=== PATIENT | male | born 1950 | race Caucasian/White ===

== ENCOUNTER 2020-10-15 15:17 | Emergency (ER) | payer SELFPAY ==
[~2020-10-15] VITALS: Ht 175.3 cm; Wt 112.8 kg
[~2020-10-15 15:17] MED LIST: AMLO5TAB4 PO; ASPI-482 PO; ATEN100T PO; OMEG500C PO; TRIA1TAB3 PO
[2020-10-15] MEDS ORDERED: CONTRAST GIVEN. MC PRN (15:30)
[2020-10-15] MEDS ORDERED: IV NORMAL SALINE 1,000ML 1,000 ML IV ONE ×2 (15:30→19:15)
[2020-10-15] MEDS ORDERED: PANTOPRAZOLE IV 40 MG VIAL. IVP ONE (15:30)
[2020-10-15] MEDS ORDERED: IOHEXOL 300 MG/ML 75 ML VIAL. IV ONE (15:30)
[2020-10-15] MEDS ORDERED: ONDANSETRON PF 4 MG/2 ML VIAL. IVP ONE (15:30)
--- NOTE | 2020-10-15 15:50 | PHYS DOC ---
Past History Past Medical History: Hypertension Additional Past Medical Histor: Limited secondary to altered mental status Past Surgical History: No Surgical History Additional Past Surgical Histo: Limited secondary to altered mental status Smoking: Quit Greater Than 1 Year Alcohol Use: None Drug Use: None Social History Narrative: Limited secondary to altered mental status General Adult EDM: Chief Complaint: WEAKNESS/GENERALIZED HPI: HPI: Patient is an unkempt 70 year old male who presents with his for generalized weakness. The patient is a poor historian due to AMS. Most of history was obtained from the patient's . Patient reportedly has not being able to urinate or pass stool since 10/11/20. Reports generalized abdominal pain for the 3 days. Per , the patient started displaying abnormal behavior this morning 10/15/20. Family apparently attempted to have patient presents to the hospital sooner but patient refused. EMS was called after the patient vomited copious amounts of a black substance. Patient reports bilateral upper/lower extremity pain/weakness. Denies known trauma. Denies known exposure to COVID-19. Reports receiving Moderna vaccinations. History of present illness limited secondary to altered mental status. Review of Systems: Review of Systems: Constitutional: Reports generalized weakness Respiratory: Denies cough GI: Reports abdominal pain, nausea, dark vomitus : Reports urinary retention; Denies dysuria Musculoskeletal: Reports bilateral upper/lower extremity pain; Denies back pain Neurologic: Reports generalized weakness Review of systems limited secondary to altered mental status Current Medications: Current Meds: Current Medications Medications (Trade) Dose Ordered Sig/Sri Start Time Stop Time Status Last Admin Dose Admin Info (Do NOT chart on this entry -- for MONITORING) 1 each PRN DAILY PRN 10/15/20 15:30 10/17/20 15:29 Iohexol (Omnipaque 300 Mg/ml) 75 ml 1X ONCE 10/15/20 15:30 10/15/20 15:31 DC Ondansetron HCl (Zofran) 4 mg 1X ONCE 10/15/20 15:30 10/15/20 15:31 DC Pantoprazole Sodium (Protonix Vial) 80 mg 1X ONCE 10/15/20 15:30 10/15/20 15:31 DC Sodium Chloride 1,000 ml @ 1,000 mls/hr 1X ONCE 10/15/20 15:30 10/15/20 16:29 Allergies: Allergies: Allergies Coded Allergies Type Severity Reaction Last Updated Verified No Known Drug Allergies 01/11/14 No Physical Exam: PE: Constitutional: Poor hygiene, obese, confused, ill appearance HENT: Normocephalic, atraumatic, black vomitus noted on chavira Eyes: PERRL, EOMI, conjunctiva normal, no discharge Neck: Normal range of motion, supple, no meningeal signs Lungs & Thorax: No respiratory distress, equal chest rise and fall Abdomen: Significantly large left side ventral hernia, generalized abdominal pain to palpation Skin: Diaphoretic, warm, no erythema, no rash Extremities: No tenderness to palpation, pain with movement in all 4 extremities, limited ROM due to pain, no edema Neurologic: Alert and oriented X 2, normal motor function, normal sensory function, no focal deficits noted Psychologic: Affect flat, judgment diminished EKG: EKG: obtained at 16:04 hrs 72 bpm QT 408 ms QTc 448 ms Irregular rhythm No P wave Abnormal right axis deviation QRS contour abnormality Radiology/Procedures: Radiology/Procedures: PROCEDURE: CT HEAD WO CONTRAST Exam: CT head INDICATION: Altered mental status TECHNIQUE: Sequential axial images through the head were obtained without the administration of IV contrast. Exposure: One or more of the following in the visualized dose reduction techniques were utilized for this examination: 1. Automated exposure control 2. Adjustment of the MA and/or KV according to patient size 3. Use of iterative of reconstructive technique Comparisons: None FINDINGS: No focal parenchymal lesion or hemorrhage is identified. There is no midline shift or sulcal effacement. Mild patchy hypodensity in the periventricular white matter. No acute vascular territory infarction is identified. Miller-white distinction is preserved. The ventricular system is within normal limits without compression hydrocephalus. The basal cisterns are well maintained. The visualized portions of the paranasal sinuses and mastoid air cells are well- pneumatized. No acute fractures. IMPRESSION: Mild small vessel ischemic change, technically age indeterminate without recent prior imaging. Electronically signed by: Jeffery Kumar MD (10/15/2020 5:20 PM) [facility]: CT ABDOMEN PELVIS WO CONTRAST Exam: CT of abdomen and pelvis without contrast INDICATION: Abdominal pain, nausea vomiting TECHNIQUE: Sequential axial images through the abdomen and pelvis obtained without IV contrast. Sagittal and coronal reformatted images were reconstructed from the axial data and reviewed. Exposure: One or more of the following in the visualized dose reduction techniques were utilized for this examination: 1. Automated exposure control 2. Adjustment of the MA and/or KV according to patient size 3. Use of iterative of reconstructive technique Comparisons: 01/11/2014 FINDINGS: Heart size is normal. No pericardial effusion. There is a small to moderate right pleural effusion with adjacent atelectasis. Evaluation of solid organs limited secondary to noncontrast technique. Liver, spleen, pancreas, gallbladder and adrenals are unremarkable. There is moderate right-sided perinephric stranding and mild right-sided hydronephrosis. There is a 4 mm calculus the distal right ureter. No other renal or ureteral calculi are identified. Bladder is decompressed with Gurrola balloon noted within the bladder. Prostate is enlarged. There is a large ventral hernia which contains majority of the large and small bowel, which are not visualized. No free intra-abdominal air or fluid are identified within the [id number]. Abdominal aorta has a normal course and caliber. No enlarged intra-abdominal lymph nodes are identified. No suspicious osseous lesions or acute fractures. IMPRESSION: 1. A 4 mm obstructing calculus at the distal right ureter with mild right-sided hydronephrosis and moderate right-sided perinephric stranding. 2. Large ventral hernia containing majority of the large and small bowel. Electronically signed by: Jeffery Kumar MD (10/15/2020 5:39 PM) [facility] PROCEDURE: CHEST AP ONLY AP chest. HISTORY: Radiology confirmation, NG placement AP view was taken of the chest. NG tube extends into the stomach. Patient is rotated to the left. There is hazy atelectasis or infiltrate in the lung bases. Heart is upper normal in size. CT showed a right pleural effusion. IMPRESSION: 1. NG tube extends into the stomach. 2. Right pleural effusion. 3. Atelectasis or infiltrate in the lung bases. Electronically signed by: Rian Slater MD (10/15/2020 10:32 PM) [facility] Heart Score: C/O Chest Pain: N/A Course & Med Decision Making: Course & Med Decision Making Pertinent Labs and Imaging studies reviewed. (See chart for details) Patient presents with altered mental status and concern for coffee-ground emesis. Patient extremely poor historian and is ill in appearance. Gurrola catheter placed with immediate output of approximately 2 L. Labs obtained and posted to chart. BUN greater than 200 with creatinine greater than 12. IV fluid hydration given. Lactic acidosis noted. UA with signs of infection. Patient meeting severe sepsis criteria. Empiric antibiotic initiated. [place] body weight IV fluid bolusing provided. Ammonia greater than 160. Hemoglobin slightly decreased. Protonix bolus and drip provided. CT head without acute process. CT chest/abdomen/pelvis with signs of obstructing 4 mm right-sided distal ureteral calculi with some hydronephrosis. Patient requiring lactulose. Difficulty with patient being able to handle p.o. liquid. NG tube therefore obtained. Chest x-ray with good positioning of NG tube. Some suctioning was performed with significant coffee-ground emesis output. Patient requiring higher level of care. Attempted to transfer patient to multiple hospitals including [facility], [facility], [facility], and [facility] who all report no bed availability. Discussed case with Dr. Nguyen (hospitalist) at [facility], who is in agreement with transfer to facility despite no urology consultation availability. Given 4mm size, patient will likely pass on own. Discussed findings and plan with family, who acknowledges understanding and agreement. Morro Disclaimer: Morro Disclaimer: This electronic medical record was generated, in whole or in part, using a voice recognition dictation system. Departure Departure: Impression: Primary Impression: Severe sepsis Additional Impressions: Kidney stone on right side Acute renal failure Qualified Codes: N17.9 - Acute kidney failure, unspecified GI bleed Qualified Codes: K92.2 - Gastrointestinal hemorrhage, unspecified Acute metabolic encephalopathy Complicated UTI (urinary tract infection) Urinary retention Disposition: [facility] ([facility]- Dr. Nguyen (Hospitalist) accepting) Condition: GUARDED Referrals: PCP,NO (PCP) Sepsis Assessment Date and Time of Assessment Date: Oct 15, 2020 Time: 19:15 Fluid Challenge: Is the fluid challenge complet: No IBW Target Volume Used: Yes BMI > 30: Yes Vital Signs Vital Signs Vital Signs Date Time Temp Pulse Resp B/P (MAP) Pulse Ox O2 Delivery O2 Flow Rate FiO2 10/15/20 21:07 68 16 111/70 (84) 95 Room Air 10/15/20 15:22 98.2 Temperature Source: Axillary Respirations Respiratory Effort: Normal Respiratory Pattern: Normal Cardiovascular Pulse Rhythm: Regular Heart: Nml rate, reg. rhythm, S1 and S2 normal Lung Sounds Breath Sounds: Diminished Capillary Refill Capillary Refill: Rt Hand < 3 seconds Peripheral Pulse Pulse Location: Radial Pulse Strength: Normal (2+) Pulse Assessment Method: NIBP Integumentary Skin: Dry, Cool Skin Moisture: Dry Skin Turgor: Normal Skin Color: warm, dry Fingernail Color: WNL Critical Care Time Critical care time was 45 minutes which includes time at bedside, spent in discussion of patient's care with specialists and/or family members, with interpretation of laboratory and/or radiological studies and is exclusive of procedures. ISABELLE BREWSTER DO Oct 15, 2020 15:49
[2020-10-15 16:09] LABS: BASO % 0 % (0-3); EOS % 0 % (0-3); HEMATOCRIT 31.7 % (39.0-53.0); HEMOGLOBIN 11.2 g/dL (13.0-17.5); LYMPH # 1.2 x10^3/uL (1.0-4.8); LYMPH % 6 % (24-48); MEAN CORPUSCULAR HEMOGLOBIN 33 pg (25-35); MEAN CORPUSCULAR HGB CONC 35 g/dL (31-37); MEAN CORPUSCULAR VOLUME 93 fL (79-100); MONO % 6 % (0-9); NEUT # 16.8 x10^3uL (1.8-7.7); NEUT % 88 % (31-73); PLATELET COUNT 292 x10^3/uL (140-400); RED BLOOD COUNT 3.41 x10^6/uL (4.30-5.70); RED CELL DISTRIBUTION WIDTH 13.1 % (11.5-14.5); WHITE BLOOD COUNT 19.1 x10^3/uL (4.0-11.0)
[2020-10-15 16:17] LABS: CALCIUM 9.4 mg/dL (8.5-10.1); CREATININE 12.3 mg/dL (0.7-1.3); GFR 4.1; POTASSIUM 4.1 mmol/L (3.5-5.1)
[2020-10-15] MEDS ORDERED: PIPERACILLIN/TAZOBACTAM 3.375 GM in IV NORMAL SALINE 50ML 50 ML IV ONE (16:30)
[2020-10-15 16:33] LABS: ALBUMIN 2.9 g/dL (3.4-5.0); ALBUMIN/GLOBULIN RATIO 0.7 (1.0-1.7); TOTAL BILIRUBIN 0.8 mg/dL (0.2-1.0); TOTAL PROTEIN 7.2 g/dL (6.4-8.2)
[2020-10-15 16:38] LABS: % ATYL 2 % (0-0); % BANDS 10 % (0-9); % LYMPHS 7 % (24-48); % MONOS 1 % (0-10); % PROS 2 % (0-0); % SEGS 78 % (35-66)
[2020-10-15 16:39] LABS: PLT ESTIMATE ADEQUATE (ADEQUATE)
[2020-10-15 17:09] LABS: FECAL OB PT POSITIVE (NEG)
[2020-10-15 17:11] LABS: BILIRUBIN,URINE NEG (NEG); CLARITY,URINE HAZY; COLOR,URINE YELLOW; GLUCOSE,URINE NEG (NEG); NITRITE,URINE POS (NEG); UROBILINOGEN,URINE 0.2 mg/dL (0.2 mg/dL)
[2020-10-15] MEDS ORDERED: IV NORMAL SALINE 50ML 50 ML ONE (17:15)
[2020-10-15] MEDS ORDERED: PIPERACILLIN/TAZOBACTAM 3.375 GM VIAL IV ONE (17:15)
[2020-10-15 17:17] LABS: BACTERIA,URINE FEW /HPF (0-FEW); SQUAMOUS EPITHELIAL CELL,UR OCC /LPF; WBC,URINE 20-40 /HPF (0-4)
--- NOTE | 2020-10-15 17:23 | RAD ---
Exam: CT head INDICATION: Altered mental status TECHNIQUE: Sequential axial images through the head were obtained without the administration of IV co ntrast. Exposure: One or more of the following in the visualized dose reduction techniques were utilized for this examination: 1. Automated exposure control 2. Adjustment of the MA and/or KV according to patient size 3. Use of iterative of reconstructive technique Comparisons: None FINDINGS: No focal parenchymal lesion or hemorrhage is identified. There is no midline shift or sulcal effaceme nt. Mild patchy hypodensity in the periventricular white matter. No acute vascular territory infarction i s identified. Miller-white distinction is preserved. The ventricular system is within normal limits without compression hydrocephalus. The basal cisterns are well maintained. The visualized portions of the paranasal sinuses and mastoid air cells are well-pneumatized. No acute fractures. IMPRESSION: Mild small vessel ischemic change, technically age indeterminate without recent prior imaging. Electronically signed by: Jeffery Kumar MD (10/15/2020 5:20 PM) [facility]
--- NOTE | 2020-10-15 17:41 | RAD ---
Exam: CT of abdomen and pelvis without contrast INDICATION: Abdominal pain, nausea vomiting TECHNIQUE: Sequential axial images through the abdomen and pelvis obtained without IV contrast. Sagit hoda and coronal reformatted images were reconstructed from the axial data and reviewed. Exposure: One or more of the following in the visualized dose reduction techniques were utilized for this examination: 1. Automated exposure control 2. Adjustment of the MA and/or KV according to patient size 3. Use of iterative of reconstructive technique Comparisons: 01/11/2014 FINDINGS: Heart size is normal. No pericardial effusion. There is a small to moderate right pleural effusion wi th adjacent atelectasis. Evaluation of solid organs limited secondary to noncontrast technique. Liver, spleen, pancreas, gallbladder and adrenals are unremarkable. There is moderate right-sided perinephric stranding and mild right-sided hydronephrosis. There is a 4 mm calculus the distal right ureter. No other renal or ureteral calculi are identified. Bladder is decompressed with Gurrola balloon noted within the bladder. Prostate is enlarged. There is a large ventral hernia which contains majority of the large and small bowel, which are not v isualized. No free intra-abdominal air or fluid are identified within the [id number]. Abdominal aorta has a normal course and caliber. No enlarged intra-abdominal lymph nodes are identified. No suspicious osseous lesions or acute fractures. IMPRESSION: 1. A 4 mm obstructing calculus at the distal right ureter with mild right-sided hydronephrosis and m oderate right-sided perinephric stranding. 2. Large ventral hernia containing majority of the large and small bowel. Electronically signed by: Jeffery Kumar MD (10/15/2020 5:39 PM) [facility]
[2020-10-15] MEDS ORDERED: PANTOPRAZOLE IV 80 MG in IV NORMAL SALINE 100ML 100 ML IV ONE (17:45)
[2020-10-15] MEDS ORDERED: PANTOPRAZOLE IV 40 MG VIAL. ONE (18:24)
[2020-10-15] MEDS ORDERED: IV NORMAL SALINE 100ML 100 ML ONE (18:24)
[2020-10-15] MEDS ORDERED: LACTULOSE 20 GM/30 ML SOLUTION. PO ONE (19:15)
[2020-10-15] MEDS ORDERED: LIDOCAINE 2% JELLY 10ML IN APPLICATOR. MM ONE (19:30)
[2020-10-15] MEDS ORDERED: LIDOCAINE 2% JELLY 6ML IN APPLICATOR. MM ONE (19:45)
[2020-10-15 22:06] VITALS: BP 141/66
--- NOTE | 2020-10-15 22:34 | RAD ---
AP chest. HISTORY: Radiology confirmation, NG placement AP view was taken of the chest. NG tube extends into the stomach. Patient is rotated to the left. The re is hazy atelectasis or infiltrate in the lung bases. Heart is upper normal in size. CT showed a ri ght pleural effusion. IMPRESSION: 1. NG tube extends into the stomach. 2. Right pleural effusion. 3. Atelectasis or infiltrate in the lung bases. Electronically signed by: Rian Slater MD (10/15/2020 10:32 PM) [facility]
--- NOTE | 2020-10-16 03:24 | EKG ---
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
== END 2020-10-15 22:30 | disposition short-term general hospital (02) ==
LOC: ER 15:17
DX: A41.9 Sepsis, unspecified organism (principal); R65.21 Severe sepsis with septic shock; N17.9 Acute kidney failure, unspecified; K92.2 Gastrointestinal hemorrhage, unspecified; G93.41 Metabolic encephalopathy; N13.2 Hydronephrosis with renal and ureteral calculous obstruction; N39.0 Urinary tract infection, site not specified; R33.9 Retention of urine, unspecified; I10 Essential (primary) hypertension; Z20.822 Contact with and (suspected) exposure to COVID-19; Z87.891 Personal history of nicotine dependence
CPT/HCPCS: 36415; 51702; 70450; 71045; 74176; 80053; 81001; 82140; 82274; 82553; 83605; 83690; 84484; 85007; 85025; 85610; 85730; 86850; 86900; 86901; 87040; 87086; 87426; 93005; 96361; 96365; 96375; 96376; 99291; C9113; C9803; J2405; J2543; J3010; J7030; U0003; 99285-25

== ENCOUNTER 2021-01-12 14:40 | Inpatient (IN) | payer MEDICARE ==
[~2021-01-12] VITALS: Ht 175.3 cm; Wt 109.3 kg
--- NOTE | 2021-01-12 14:51 | PHYS DOC ---
Past History Past Medical History: Hypertension Past Surgical History: No Surgical History Additional Past Surgical Histo: Limited secondary to altered mental status Smoking: Quit Greater Than 1 Year Alcohol Use: None Drug Use: None Adult General HPI HPI Patient is a 62-year-old male presenting via POV for fatigue. This is an acute on chronic issue. Patient has extensive comorbid medical history and was recently transferred from our facility in September to outlying [facility] for admission due to severe sepsis from 4 mm kidney stone. He has had adequate outpatient follow-up since then, continues to see his primary care provider and other subspecialist. He recently saw his urologist where he had Gurrola catheter exchanged which is a monthly occurrence, this was last changed 3 days ago and unremarkable. He has no major complaints today, specifically no falls or trauma, fever, vision changes, headache, chest pain, ripping or tearing sensation in torso, shortness of breath or cough, abdominal pain, nausea vomit diarrhea, changes in bladder or bowel function, motor or sensory or neuro deficits. He is fully vaccinated against COVID-19. is one who brought him here as she was concerned about him being tired, states she did not want to take any chances given recent ER visit for which patient deferred seeking medical attention for several days prior to presenting to ER Review of Systems Review of Systems Fourteen body systems of review of systems have been reviewed. See HPI for pertinent positives and negative responses, other damon all other systems are negative, non-pertinent or non-contributory Allergies Allergies Allergies Coded Allergies Type Severity Reaction Last Updated Verified No Known Drug Allergies 01/11/14 No Physical Exam Physical Exam Constitutional: Morbidly obese, nontoxic in appearance, no acute distress and appears older than stated age, appears disheveled, room smells of cigarette smoke HENT: Normocephalic, atraumatic, bilateral external ears normal, oropharynx moist, no oral exudates, nose normal. Eyes: PERRLA, EOMI, conjunctiva normal, no discharge. Neck: Normal range of motion, no tenderness, supple, no stridor. Cardiovascular: Heart rate regular, sinus rhythm, no murmurs rubs or gallops Lungs & Thorax: Diminished breath sounds globally due to sheer size/obesity, scant wheeze bilaterally otherwise clear to auscultation Abdomen: Bowel sounds normal, soft and extremely protuberant, no tenderness, no masses, no pulsatile masses. Nonsurgical abdomen, no peritoneal signs. Gurrola catheter in adequate position and well-appearing Skin: Warm, dry, no erythema, no rash. Back: No tenderness, no CVA tenderness. Extremities: No tenderness, no cyanosis, no clubbing, ROM intact, no edema. Neurologic: Alert and oriented X 3, grossly normal motor & sensory function, no focal deficits noted. Psychologic: Affect normal, judgement normal, mood normal. Current Patient Data Vital Signs Vital Signs Date Time Temp Pulse Resp B/P (MAP) Pulse Ox O2 Delivery O2 Flow Rate FiO2 01/12/21 14:53 97.8 73 20 124/59 (80) 98 Room Air Vital Signs Date Time Temp Pulse Resp B/P (MAP) Pulse Ox O2 Delivery O2 Flow Rate FiO2 01/12/21 14:53 97.8 73 20 124/59 (80) 98 Room Air Lab Results Laboratory Tests Test 01/12/21 15:13 White Blood Count 10.2 x10^3/uL Red Blood Count 4.06 x10^6/uL Hemoglobin 13.0 g/dL Hematocrit 38.8 % Mean Corpuscular Volume 96 fL Mean Corpuscular Hemoglobin 32 pg Mean Corpuscular Hemoglobin Concent 34 g/dL Red Cell Distribution Width 14.2 % Platelet Count 130 x10^3/uL Neutrophils (%) (Auto) 90 % Lymphocytes (%) (Auto) 3 % Monocytes (%) (Auto) 5 % Eosinophils (%) (Auto) 2 % Basophils (%) (Auto) 1 % Neutrophils # (Auto) 9.2 x10^3uL Lymphocytes # (Auto) 0.3 x10^3/uL Monocytes # (Auto) 0.5 x10^3/uL Eosinophils # (Auto) 0.2 x10^3/uL Basophils # (Auto) 0.1 x10^3/uL Sodium Level 125 mmol/L Potassium Level 3.3 mmol/L Chloride Level 88 mmol/L Carbon Dioxide Level 24 mmol/L Anion Gap 13 Blood Urea Nitrogen 41 mg/dL Creatinine 2.3 mg/dL Estimated GFR (Cockcroft-Gault) 28.4 Glucose Level 144 mg/dL Calcium Level 9.1 mg/dL Troponin I Quantitative < 0.017 ng/mL EKG EKG EKG ordered and interpreted by myself at 1510 hrs. as rate controlled atrial fibrillation with a ventricular rate of 74 bpm, unremarkable intervals, no axis deviation, no obvious ischemic findings, no STEMI Radiology/Procedures Radiology/Procedures Exam: Chest one view INDICATION: Fatigue TECHNIQUE: Frontal view of the chest Comparisons: 10/15/2020 FINDINGS: The cardiomediastinal silhouette and pulmonary vessels are within normal limits. Hazy opacities lung bases bilaterally. No pleural effusion. IMPRESSION: Hazy bibasilar airspace disease may relate to mild edema or developing inf ectious process. Electronically signed by: Jeffery Kumar MD (01/12/2021 4:02 PM) [facility] Heart Score C/O Chest Pain: No HEART Score for Chest Pain: HEART Score for Chest Pain Response (Comments) Value History Slighlty/Non-Suspicious 0 ECG Nonspecific Repolarizatio 1 Age > 65 2 Risk Factors >3 Risk Factors or Hx CAD 2 Troponin < Normal Limit 0 Total 5 Risk Factors: Risk Factors: DM, Current or recent (<one month) smoker, HTN, HLP, family history of CAD, obesity. Risk Scores: Risk Factors: DM, Current or recent (<one month) smoker, HTN, HLP, family history of CAD, obesity. Course & Med Decision Making Course & Med Decision Making ABCs unremarkable. HPI, physical exam and comprehensive ER work-up concerning for elevated creatinine with unknown baseline and gross electrolyte imbalance. Patient will require IV fluid rehydration and recheck as ER treatment with pasty discharge home could put patient at life-threatening risk I contacted patient's PCP who also serves as hospitalist and discussed need for hospital admission for continued IV fluid rehydration, electrolyte management, and evaluation for safety of discharge home. Hospitalist accepted this patient I updated patient and at bedside on all ER findings, discussion with PCP above, and proposed plan of care that includes hospital admission and they were amenable. All questions and concerns addressed prior to hospital admission Dragon Disclaimer Dragon Disclaimer This electronic medical record was generated, in whole or in part, using a voice recognition dictation system. Departure Departure: Impression: Primary Impression: LUIS (acute kidney injury) Additional Impression: Electrolyte imbalance Disposition: ADMITTED INPATIENT Admitting Physician: Annita Zavala Condition: STABLE Referrals: ANNITA ZAVALA MD (PCP) Problem Qualifiers JIMMY WOMACK DO Jan 12, 2021 14:51
[2021-01-12 15:42] LABS: BASO # 0.1 x10^3/uL (0.0-0.2); BASO % 1 % (0-3); EOS # 0.2 x10^3/uL (0.0-0.7); EOS % 2 % (0-3); HEMATOCRIT 38.8 % (39.0-53.0); LYMPH # 0.3 x10^3/uL (1.0-4.8); LYMPH % 3 % (24-48); MEAN CORPUSCULAR HEMOGLOBIN 32 pg (25-35); MEAN CORPUSCULAR HGB CONC 34 g/dL (31-37); MEAN CORPUSCULAR VOLUME 96 fL (79-100); MONO # 0.5 x10^3/uL (0.0-1.1); MONO % 5 % (0-9); NEUT # 9.2 x10^3uL (1.8-7.7); NEUT % 90 % (31-73); PLATELET COUNT 130 x10^3/uL (140-400); RED BLOOD COUNT 4.06 x10^6/uL (4.30-5.70); RED CELL DISTRIBUTION WIDTH 14.2 % (11.5-14.5); WHITE BLOOD COUNT 10.2 x10^3/uL (4.0-11.0)
[2021-01-12 15:47] LABS: CALCIUM 9.1 mg/dL (8.5-10.1); CREATININE 2.3 mg/dL (0.7-1.3); GFR 28.4; POTASSIUM 3.3 mmol/L (3.5-5.1)
[2021-01-12] MEDS ORDERED: POTASSIUM CL 40MEQ IN 0.9%NACL 1,000 ML IV ONE (16:00)
[2021-01-12] MEDS ORDERED: ACETAMINOPHEN 325 MG TABLET PO PRN (16:00)
[2021-01-12] MEDS ORDERED: NITROGLYCERIN SUBLINGUAL 0.4 MG BOTTLE OF 25. SL PRN (16:00)
[2021-01-12] MEDS ORDERED: ONDANSETRON PF 4 MG/2 ML VIAL. IVP PRN (16:00)
--- NOTE | 2021-01-12 16:04 | RAD ---
Exam: Chest one view INDICATION: Fatigue TECHNIQUE: Frontal view of the chest Comparisons: 10/15/2020 FINDINGS: The cardiomediastinal silhouette and pulmonary vessels are within normal limits. Hazy opacities lung bases bilaterally. No pleural effusion. IMPRESSION: Hazy bibasilar airspace disease may relate to mild edema or developing infectious process. Electronically signed by: Jeffery Kumar MD (01/12/2021 4:02 PM) [facility]
--- NOTE | 2021-01-12 16:10 | EKG ---
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
[2021-01-12 19:52] LABS: BACTERIA,URINE MANY /HPF (0-FEW); BILIRUBIN,URINE SMALL (NEG); CLARITY,URINE CLOUDY; COLOR,URINE AMBER; GLUCOSE,URINE NEG (NEG); NITRITE,URINE NEG (NEG); RBC,URINE >40 /HPF (0-2); UROBILINOGEN,URINE 0.2 mg/dL (0.2 mg/dL)
[2021-01-12] MEDS ORDERED: CARV6.2541 PO (20:26)
[2021-01-12] MEDS ORDERED: TAMS0.4C97 PO (20:26)
[2021-01-12] MEDS ORDERED: GEMF-24 PO (20:26)
[2021-01-12] MEDS ORDERED: PANT40TA6 PO (20:26)
[2021-01-12 21:25] VITALS: BP 117/72
[2021-01-12] MEDS ORDERED: levoFLOXacin PER PHARMACY 1 EACH. MC PRN (21:30)
[2021-01-12] MEDS ORDERED: PIP/TAZO PER PHARMACY MC PRN (21:30)
[2021-01-12 21:32] VITALS: BP 134/72
[2021-01-12] MEDS ORDERED: ZOLPIDEM 5 MG TABLET. PO PRN (21:45)
[2021-01-12] MEDS: GEMFIBROZIL 600 MG TABLET. PO SCH (22:19)
[2021-01-12] MEDS: TAMSULOSIN 0.4 MG CAP.ER.24H. PO SCH (22:19)
[2021-01-12 23:24] VITALS: BP 101/59
[2021-01-12] MEDS: PIPERACILLIN/TAZOBACTAM 2.25 GM in IV NORMAL SALINE 50ML 50 ML IV SCH (23:30)
[2021-01-13 05:38] VITALS: BP 95/54
[2021-01-13] MEDS: PIPERACILLIN/TAZOBACTAM 2.25 GM in IV NORMAL SALINE 50ML 50 ML IV SCH ×3 (05:49→17:47)
[2021-01-13 05:55] LABS: BASO % 0 % (0-3); EOS # 0.2 x10^3/uL (0.0-0.7); EOS % 2 % (0-3); HEMATOCRIT 33.7 % (39.0-53.0); HEMOGLOBIN 11.3 g/dL (13.0-17.5); LYMPH # 0.3 x10^3/uL (1.0-4.8); LYMPH % 4 % (24-48); MEAN CORPUSCULAR HEMOGLOBIN 32 pg (25-35); MEAN CORPUSCULAR HGB CONC 34 g/dL (31-37); MEAN CORPUSCULAR VOLUME 95 fL (79-100); MONO # 0.6 x10^3/uL (0.0-1.1); MONO % 7 % (0-9); NEUT % 88 % (31-73); PLATELET COUNT 126 x10^3/uL (140-400); RED BLOOD COUNT 3.56 x10^6/uL (4.30-5.70); RED CELL DISTRIBUTION WIDTH 14.3 % (11.5-14.5); WHITE BLOOD COUNT 9.1 x10^3/uL (4.0-11.0)
[2021-01-13 06:08] LABS: ALBUMIN 2.1 g/dL (3.4-5.0); ALBUMIN/GLOBULIN RATIO 0.5 (1.0-1.7); CALCIUM 8.4 mg/dL (8.5-10.1); CREATININE 2.3 mg/dL (0.7-1.3); GFR 28.4; POTASSIUM 3.4 mmol/L (3.5-5.1); TOTAL BILIRUBIN 1.4 mg/dL (0.2-1.0); TOTAL PROTEIN 6.4 g/dL (6.4-8.2)
[2021-01-13] MEDS: GEMFIBROZIL 600 MG TABLET. PO SCH ×2 (08:20→21:00)
[2021-01-13] MEDS: ASPIRIN ENTERIC COATED 81 MG TABLET.DR. PO SCH (08:20)
[2021-01-13] MEDS: CARVEDILOL 6.25 MG TABLET PO SCH ×2 (08:21→16:07)
[2021-01-13] MEDS: PANTOPRAZOLE 40 MG TABLET. PO SCH (08:21)
[2021-01-13] MEDS: TAMSULOSIN 0.4 MG CAP.ER.24H. PO SCH ×2 (08:21→21:00)
--- NOTE | 2021-01-13 08:48 | RAD ---
CT ABDOMEN+PELVIS WO History: Abdominal hernia Comparison: CT 10/15/2020 Technique: CT of the abdomen and pelvis without contrast. Findings: Mild dependent changes in left greater than right lung bases. No pleural or pericardial effusion. The liver, gallbladder, spleen, and adrenal glands are unremarkable. There is severe fatty atrophy of the pancreas. Moderate bilateral perinephric stranding. No nephrolithiasis or significant hydronephr osis. There is a large periumbilical ventral hernia with neck measuring 5.9 cm craniocaudal by 7.5 cm trans verse. Hernia sac measures approximately 13.5 cm AP by 40 cm transverse by 34 cm craniocaudal. The ga stric body and antrum are present within this hernia sac. The duodenum originates from the hernia sac versus a retroperitoneal behind the superior mesenteric artery in the region of the abdominal wall d efect and then returns into the hernia sac with the remainder of the small bowel is located. The appe ndix is normal. The ascending, transverse, descending and first portion of the sigmoid colon are pres ent within the hernia sac. There is mild sigmoid diverticulosis. No pericolonic inflammatory fat stra nding. Aortoiliac calcification without aneurysm. The bladder is decompressed by Gurrola catheter. Enlarged pr ostate. No intraperitoneal free air or free fluid. Multilevel degenerative changes of the spine. Circ umferential disc bulge with marginal calcifications at the L1-L2, L3-L4 L4-L5 and L5-S1 levels. Narro wing of the spinal canal by posterior calcified bulge approximately 5 mm at the level of L3-L4. Impression: 1. Large ventral hernia containing the part the nearly all of the small bowel and colon. No evidence of obstruction. There are noncontrast evidence for bowel infarction. 2. Moderate bilateral perinephric fat stranding. No nephrolithiasis or significant hydronephrosis. C orrelate for pyelonephritis. 3. Mild sigmoid diverticulosis without evidence of diverticulitis. 4. Advanced degenerative changes of the lumbar spine with calcified circumferential disc bulges caus ing spinal canal stenosis. ------ Exposure: One or more of the following individualized dose reduction techniques were utilized for thi s examination: 1. Automated exposure control 2. Adjustment of the mA and/or kV according to patient size 3. Use of iterative reconstruction technique. Electronically signed by: Reagan Desir MD (01/13/2021 8:45 AM) [id number]
[2021-01-13] MEDS: FINASTERIDE 5 MG TABLET. PO SCH (09:00)
[2021-01-13] MEDS ORDERED: FLU VACC QUAD 21-22 (6MOS+) PF 0.5 ML SYRINGE. VAX IM ONE (09:00)
[2021-01-13] MEDS ORDERED: FUROSEMIDE 40 MG/4 ML VIAL IVP SCH (09:00)
--- NOTE | 2021-01-13 09:11 | HP ---
ADMIT DATE: 01/13/2021 HISTORY OF PRESENT ILLNESS: A 70-year-old gentleman complaining of generalized fatigue, extensive history of multiple medical problems. He was in September at [facility] for severe sepsis, 4 mm kidney stone. The patient had also seen physicians out in [place] for his urology situation, where he has trouble urinating and has had problems ever since with that. He has a leg bag in, but now he has difficulty breathing. His renal function has been elevated. He is fully vaccinated against COVID-19. He is extremely tired and run down. He has been seeking medical attention for several days here in the Emergency Room. PAST MEDICAL HISTORY: Includes hypercholesterolemia, hypertension, kidney stones, history of alcohol abuse, smoking history, abdominal hernia, BPH, sepsis. IMMUNIZATIONS: Vaccinations for tetanus, influenza, and COVID up to date. ALLERGIES: NO KNOWN ALLERGIES. FAMILY HISTORY: Noncontributory or not given. SOCIAL HISTORY: The patient has about a 96-[id number]-[id number] history of smoking. Used to be a heavy drinker, has cut down on that alcohol use. Denies hard drug use. The patient is a FULL CODE. REVIEW OF SYSTEMS: The patient generally says he is short of breath, tired and fatigued. He denies chest pain, abdominal pain. Denies any nausea, vomiting, melena, hematochezia or hematemesis. Neurologically, kind of in and out. He feels tired and run down. Does not feel like his usual self. PHYSICAL EXAMINATION: GENERAL: This is an ill-appearing male. VITAL SIGNS: Blood pressure 95/40, respiratory rate 20, pulse 60, presently afebrile, actually low at 97.8, oxygen saturation 97% on room air. HEENT: Head was atraumatic, normocephalic. Eyes: PERRLA without jaundice. The mouth and throat show poor dentition, heavy chavira. NECK: Supple. LUNGS: Diminished. Some crackles, but fairly clear. CARDIOVASCULAR: Regular sinus rhythm. S1, S2. ABDOMEN: Soft, nontender, slightly protuberant. The patient's abdomen is soft, nontender. EXTREMITIES: No clubbing, cyanosis. Trace edema noted. Leg bag in place. Pulses noted distally. NEUROLOGIC: He is alert and oriented to baseline at the present time. IMPRESSION: Sepsis, probable urosepsis, change in mental status, irregular heart rhythm, congestive heart failure, acute on top of chronic diastolic heart failure. LABORATORY DATA: Urine sent for culture. Hemoglobin and hematocrit 11.3 and 33. BUN and creatinine of 50 and 2.3. Lactic acid elevated at 2.1. BNP approximately 10,000. Albumin low at 2.1. Sodium was low at 125, has come up to 127. Potassium low at 3.4. We will continue to monitor those as well. PLAN: We have a patient who is septic with heart failure, BPH, significant with leg bag, low sodium, low potassium, chronic kidney disease stage IIIB. Continue to diurese. Cardiology consultation. IV antibiotic therapy and adjust his medicines accordingly. MARIELLE/NOLA DR: MARIELLE/rosmery TID: [id number]
[2021-01-13] MEDS: POTASSIUM CHLORIDE 10 MEQ TABLET.ER. PO SCH ×2 (09:30→21:00)
[2021-01-13 10:23] VITALS: BP 95/55
--- NOTE | 2021-01-13 12:26 | EKG ---
[address] [address] Test Date: 2021-01-13 Test Time: 11:45:34 Pat Name: EAGLE ZAVALETA Department: Room: 120 A Gender: M Director Clinical Information Services: : 1950 Requested By: ANNITA ZAVALA Order Number: [id number] Reading MD: Tai Puri MD Measurements Intervals [place] Rate: 70 P: [place]: QRS: 24 QRSD: 100 T: 13 QT: 412 QTc: 448 Interpretive Statements Atrial fibrillation nonspecific ST-T wave changes Electronically Signed On 01-13-2021 12:25:57 CDT by Tai Puri MD
[2021-01-13 15:25] VITALS: BP 102/64
--- NOTE | 2021-01-13 18:27 | PDOC2 ---
CONSULT DOS: DATE: 01/13/21 TIME: 18:20 Reason for Consult: Heart failure Referring Physician: Dr. Deleon Chief Complaint Increasing fatigue. Source: Chart review, Patient Problem List Problems Medical Problems: (1) LUIS (acute kidney injury) Status: Acute (2) Electrolyte imbalance Status: Acute History of Present Illness The patient is a 70-year-old male who was admitted through the emergency room for increasing fatigue. Patient also reports some increasing shortness of sandie ath. His initial EKG showed atrial fibrillation which was rate controlled with no acute ischemic changes. His chest x-ray showed hazy bilateral airspace disease. Significant lab included troponin at less than 0.017 but an elevated BNP of 9998. White count was 10.2 sodium 125 potassium 3.4 BUN of 41 and creatinine of 2.3. Patient was treated with fluids overnight and is feeling somewhat better today. He denies chest pain. He denies any history of coronary artery disease but does have a history of hypertension, hyperlipidemia, chronic kidney disease, BP H. And was admitted to [facility] several months ago for sepsis secondary to a kidney stone. He has an indwelling Gurrola and is followed by the urology service. Cardiovascular: HTN, hyperipidemia Renal/: Chronic renal insuff, Benign prostatic enlarg. (Kidney stones), Other (Kidney stones) Past Surgical History: Other (Indwelling Gurrola) Family History: Hypertension Smoke: <1 pack per day ALCOHOL: other (Previous heavy use) Current Medications Current Medications Ondansetron HCl (Zofran) 4 mg PRN Q8HRS PRN IVP NAUSEA/VOMITING; Start 01/12/21 at 16:00; Stop 01/13/21 at 15:59; Status DC Acetaminophen (Tylenol) 650 mg PRN Q4HRS PRN PO FEVER > 100.3'F; Start 01/12/21 at 16:00; Stop 01/13/21 at 15:59; Status DC Nitroglycerin (Nitrostat) 0.4 mg PRN Q5MIN PRN SL CHEST PAIN; Start 01/12/21 at 16:00; Stop 01/13/21 at 15:59; Status DC Potassium Chloride/Sodium Chloride 1,000 ml @ 175 mls/hr 1X ONCE IV Last administered on 01/12/21at 16:18; Start 01/12/21 at 16:00; Stop 01/12/21 at 21:42; Status DC Aspirin (Aspirin Enteric Coated) 81 mg DAILY PO Last administered on 01/13/21at 08:20; Start 01/13/21 at 09:00 Carvedilol (Coreg) 6.25 mg BIDWMEALS PO Last administered on 01/13/21at 16:07; Start 01/13/21 at 08:00 Gemfibrozil (Lopid) 600 mg BID PO Last administered on 01/13/21at 08:20; Start 01/12/21 at 21:00 Pantoprazole Sodium (Protonix) 40 mg DAILYAC PO Last administered on 01/13/21at 08:21; Start 01/13/21 at 07:30 Tamsulosin HCl (Flomax) 0.4 mg BID PO Last administered on 01/13/21at 08:21; Start 01/12/21 at 21:00 Piperacillin Sod/ Tazobactam Sod (Zosyn Per Pharmacy) 1 each PRN DAILY PRN MC SEE COMMENTS; Start 01/12/21 at 21:30 Levofloxacin/ Dextrose (Levaquin Per Pharmacy) 1 each PRN DAILY PRN MC SEE COMMENTS; Start 01/12/21 at 21:30 Zolpidem Tartrate (Ambien) 5 mg PRN QHS PRN PO INSOMNIA, MAY REPEAT IN 1HR; Start 01/12/21 at 21:45 Piperacillin Sod/ Tazobactam Sod 2.25 gm/Sodium Chloride 50 ml @ 100 mls/hr Q6HRS IV Last administered on 01/13/21at 17:47; Start 01/12/21 at 22:00 Levofloxacin/ Dextrose 100 ml @ 100 mls/hr ONCE ONCE IV Last administered on 01/12/21at 22:19; Start 01/12/21 at 23:00; Stop 01/12/21 at 23:59; Status DC Levofloxacin/ Dextrose 50 ml @ 50 mls/hr Q24H IV ; Start 01/13/21 at 21:00 Influenza Virus Vaccine Quadrival (Flulaval Quad [id number] Syringe) 0.5 ml ONCE ONCE VAX IM Last administered on 01/13/21at 09:11; Start 01/13/21 at 09:00; Stop 01/13/21 at 09:01; Status DC Furosemide (Lasix) 40 mg DAILY IVP Last administered on 01/13/21at 09:15; Start 01/13/21 at 09:00 Finasteride (Proscar) 5 mg DAILY PO Last administered on 01/13/21at 09:00; Start 01/13/21 at 09:00 Potassium Chloride (Klor-Con) 10 meq BID PO Last administered on 01/13/21at 09:30; Start 01/13/21 at 09:30 Active Scripts Active Reported Carvedilol (Carvedilol) 6.25 Mg Tablet 6.25 Mg PO BIDWMEALS Gemfibrozil 600 Mg Tablet 600 Mg PO BID Flomax (Tamsulosin Hcl) 0.4 Mg Cap.er.24h 0.4 Mg PO BID Pantoprazole Sodium 40 Mg Tablet.dr 40 Mg PO DAILYAC Fish Oil ([place]-3 Fatty Acids) 500 Mg Capsule.dr 500 Mg PO DAILY Triamterene-Hctz 37.5-25 Mg Tb (Triamterene/Hydrochlorothiazid) 1 Each Tablet 1 Each PO DAILY Aspir 81 (Aspirin) 81 Mg Tablet.dr 81 Mg PO DAILY Allergies: Coded Allergies: No Known Drug Allergies (Unverified , 01/12/21) General: YES: Fatigue Respiratory: YES: Shortness of breath, SOB with excertion General: mild distress HEENT: Atraumatic Lungs: Other (Mildly decreased breath sounds) Heart: Other (Irregularly irregular) Abdomen: Normal bowel sounds VITALS Vital Signs Date Time Temp Pulse Resp B/P (MAP) Pulse Ox O2 Delivery O2 Flow Rate FiO2 01/13/21 16:07 63 102/64 01/13/21 15:25 98.0 20 97 Room Air Labs Laboratory Tests Test 01/12/21 15:13 01/12/21 17:50 01/12/21 17:51 01/12/21 18:25 White Blood Count 10.2 x10^3/uL (4.0-11.0) Red Blood Count 4.06 x10^6/uL (4.30-5.70) Hemoglobin 13.0 g/dL (13.0-17.5) Hematocrit 38.8 % (39.0-53.0) Mean Corpuscular Volume 96 fL (79-100) Mean Corpuscular Hemoglobin 32 pg (25-35) Mean Corpuscular Hemoglobin Concent 34 g/dL (31-37) Red Cell Distribution Width 14.2 % (11.5-14.5) Platelet Count 130 x10^3/uL (140-400) Neutrophils (%) (Auto) 90 % (31-73) Lymphocytes (%) (Auto) 3 % (24-48) Monocytes (%) (Auto) 5 % (0-9) Eosinophils (%) (Auto) 2 % (0-3) Basophils (%) (Auto) 1 % (0-3) Neutrophils # (Auto) 9.2 x10^3uL (1.8-7.7) Lymphocytes # (Auto) 0.3 x10^3/uL (1.0-4.8) Monocytes # (Auto) 0.5 x10^3/uL (0.0-1.1) Eosinophils # (Auto) 0.2 x10^3/uL (0.0-0.7) Basophils # (Auto) 0.1 x10^3/uL (0.0-0.2) Sodium Level 125 mmol/L (136-145) Potassium Level 3.3 mmol/L (3.5-5.1) Chloride Level 88 mmol/L (98-107) Carbon Dioxide Level 24 mmol/L (21-32) Anion Gap 13 (6-14) Blood Urea Nitrogen 41 mg/dL (8-26) Creatinine 2.3 mg/dL (0.7-1.3) Estimated GFR (Cockcroft-Gault) 28.4 Glucose Level 144 mg/dL (70-99) Calcium Level 9.1 mg/dL (8.5-10.1) Troponin I Quantitative < 0.017 ng/mL (0-0.055) GP-Glo-K-Type Natriuretic Peptide 9998 pg/mL (0-124) SARS-CoV-2 Antigen (Rapid) Negative (NEGATIVE) Coronavirus (COVID-19)(PCR) Not detected (NOT DETECTD) Urine Collection Type U cath Urine Color Allegra Urine Clarity Cloudy Urine pH 8.5 Urine Specific [place] 1.020 Urine Protein 100 mg/dl (NEG-TRACE) Urine Glucose (UA) Neg mg/dL (NEG) Urine Ketones (Stick) Neg mg/dL (NEG) Urine Blood Large (NEG) Urine Nitrite Neg (NEG) Urine Bilirubin Small (NEG) Urine Urobilinogen Dipstick 0.2 mg/dL (0.2 mg/dL) Urine Leukocyte Esterase Mod (NEG) Urine RBC >40 /HPF (0-2) Urine WBC 11-20 /HPF (0-4) Urine Bacteria Many /HPF (0-FEW) Test 01/12/21 22:05 01/13/21 01:35 01/13/21 05:40 Lactic Acid Level 2.1 mmol/L (0.4-2.0) 1.3 mmol/L (0.4-2.0) White Blood Count 9.1 x10^3/uL (4.0-11.0) Red Blood Count 3.56 x10^6/uL (4.30-5.70) Hemoglobin 11.3 g/dL (13.0-17.5) Hematocrit 33.7 % (39.0-53.0) Mean Corpuscular Volume 95 fL (79-100) Mean Corpuscular Hemoglobin 32 pg (25-35) Mean Corpuscular Hemoglobin Concent 34 g/dL (31-37) Red Cell Distribution Width 14.3 % (11.5-14.5) Platelet Count 126 x10^3/uL (140-400) Neutrophils (%) (Auto) 88 % (31-73) Lymphocytes (%) (Auto) 4 % (24-48) Monocytes (%) (Auto) 7 % (0-9) Eosinophils (%) (Auto) 2 % (0-3) Basophils (%) (Auto) 0 % (0-3) Neutrophils # (Auto) 8.0 x10^3uL (1.8-7.7) Lymphocytes # (Auto) 0.3 x10^3/uL (1.0-4.8) Monocytes # (Auto) 0.6 x10^3/uL (0.0-1.1) Eosinophils # (Auto) 0.2 x10^3/uL (0.0-0.7) Basophils # (Auto) 0.0 x10^3/uL (0.0-0.2) Sodium Level 127 mmol/L (136-145) Potassium Level 3.4 mmol/L (3.5-5.1) Chloride Level 93 mmol/L (98-107) Carbon Dioxide Level 23 mmol/L (21-32) Anion Gap 11 (6-14) Blood Urea Nitrogen 50 mg/dL (8-26) Creatinine 2.3 mg/dL (0.7-1.3) Estimated GFR (Cockcroft-Gault) 28.4 BUN/Creatinine Ratio 22 (6-20) Glucose Level 104 mg/dL (70-99) Calcium Level 8.4 mg/dL (8.5-10.1) Total Bilirubin 1.4 mg/dL (0.2-1.0) Aspartate Amino Transf (AST/SGOT) 32 U/L (15-37) Alanine Aminotransferase (ALT/SGPT) 17 U/L (16-63) Alkaline Phosphatase 60 U/L (46-116) Total Protein 6.4 g/dL (6.4-8.2) Albumin 2.1 g/dL (3.4-5.0) Albumin/Globulin Ratio 0.5 (1.0-1.7) Images Chest x-ray with hazy bilateral airspace disease. Assessment/Plan 1. LUIS. Creatinine of 2.3. Patient has been treated with IV fluids. He has a history of benign prostatic hypertrophy, kidney stones and an indwelling Gurrola. We will continue to monitor lab. 2. Hyponatremia. Treatment as per the primary service. 3. Probable heart failure. BNP elevated at 9998. Troponin normal. Will trend troponin. We will check an echocardiogram. 4. Hypertension. Controlled. 5. Hyperlipidemia. Will check a.m. lab. 6. Rate controlled atrial fibrillation. EAGLE HARRIS MD Jan 13, 2021 18:27
[2021-01-13 18:35] VITALS: BP 103/67
[2021-01-13 22:43] VITALS: BP 87/45
[2021-01-14] MEDS: PIPERACILLIN/TAZOBACTAM 2.25 GM in IV NORMAL SALINE 50ML 50 ML IV SCH ×5 (00:31→23:35)
[2021-01-14 05:03] VITALS: BP 100/60
[2021-01-14 06:00] LABS: BASO % 0 % (0-3); EOS # 0.1 x10^3/uL (0.0-0.7); EOS % 1 % (0-3); HEMATOCRIT 33.2 % (39.0-53.0); HEMOGLOBIN 11.2 g/dL (13.0-17.5); LYMPH # 0.4 x10^3/uL (1.0-4.8); LYMPH % 4 % (24-48); MEAN CORPUSCULAR HEMOGLOBIN 32 pg (25-35); MEAN CORPUSCULAR HGB CONC 34 g/dL (31-37); MEAN CORPUSCULAR VOLUME 95 fL (79-100); MONO % 9 % (0-9); NEUT # 9.2 x10^3uL (1.8-7.7); NEUT % 86 % (31-73); PLATELET COUNT 143 x10^3/uL (140-400); RED CELL DISTRIBUTION WIDTH 14.8 % (11.5-14.5); WHITE BLOOD COUNT 10.8 x10^3/uL (4.0-11.0)
[2021-01-14 06:12] LABS: CALCIUM 8.9 mg/dL (8.5-10.1); CREATININE 2.8 mg/dL (0.7-1.3); GFR 22.6; POTASSIUM 3.1 mmol/L (3.5-5.1)
[2021-01-14] MEDS: FINASTERIDE 5 MG TABLET. PO SCH (08:03)
[2021-01-14] MEDS: GEMFIBROZIL 600 MG TABLET. PO SCH ×2 (08:03→20:37)
[2021-01-14] MEDS: ASPIRIN ENTERIC COATED 81 MG TABLET.DR. PO SCH (08:03)
[2021-01-14] MEDS: POTASSIUM CHLORIDE 10 MEQ TABLET.ER. PO SCH ×2 (08:04→20:37)
[2021-01-14] MEDS: TAMSULOSIN 0.4 MG CAP.ER.24H. PO SCH ×2 (08:04→20:37)
[2021-01-14] MEDS: PANTOPRAZOLE 40 MG TABLET. PO SCH (08:04)
[2021-01-14] MEDS: CARVEDILOL 6.25 MG TABLET PO SCH (08:04)
--- NOTE | 2021-01-14 08:56 | PDOC ---
CARDIO Progress Notes Date & Time Date of Service DATE: 01/14/21 TIME: 08:50 Time of Evaluation 08:50 Subjective Notes No chest pain, shortness of breath. Feeling better today Vitals Vitals Vital Signs Date Time Temp Pulse Resp B/P (MAP) Pulse Ox O2 Delivery O2 Flow Rate FiO2 01/14/21 08:04 68 100/60 01/14/21 05:03 98.4 20 96 Room Air Weight Weight [ ] Input and Output I.O. Intake and Output 01/14/21 07:00 Intake Total 1640 ml Output Total 2500 ml Balance -860 ml Intake Oral 1540 ml IV Total 100 ml Output Urine Total 2500 ml # Bowel Movements 2 Laboratory Labs Laboratory Tests Test 01/12/21 15:13 01/12/21 17:50 01/12/21 17:51 01/12/21 18:25 White Blood Count 10.2 x10^3/uL (4.0-11.0) Red Blood Count 4.06 x10^6/uL (4.30-5.70) Hemoglobin 13.0 g/dL (13.0-17.5) Hematocrit 38.8 % (39.0-53.0) Mean Corpuscular Volume 96 fL (79-100) Mean Corpuscular Hemoglobin 32 pg (25-35) Mean Corpuscular Hemoglobin Concent 34 g/dL (31-37) Red Cell Distribution Width 14.2 % (11.5-14.5) Platelet Count 130 x10^3/uL (140-400) Neutrophils (%) (Auto) 90 % (31-73) Lymphocytes (%) (Auto) 3 % (24-48) Monocytes (%) (Auto) 5 % (0-9) Eosinophils (%) (Auto) 2 % (0-3) Basophils (%) (Auto) 1 % (0-3) Neutrophils # (Auto) 9.2 x10^3uL (1.8-7.7) Lymphocytes # (Auto) 0.3 x10^3/uL (1.0-4.8) Monocytes # (Auto) 0.5 x10^3/uL (0.0-1.1) Eosinophils # (Auto) 0.2 x10^3/uL (0.0-0.7) Basophils # (Auto) 0.1 x10^3/uL (0.0-0.2) Sodium Level 125 mmol/L (136-145) Potassium Level 3.3 mmol/L (3.5-5.1) Chloride Level 88 mmol/L (98-107) Carbon Dioxide Level 24 mmol/L (21-32) Anion Gap 13 (6-14) Blood Urea Nitrogen 41 mg/dL (8-26) Creatinine 2.3 mg/dL (0.7-1.3) Estimated GFR (Cockcroft-Gault) 28.4 Glucose Level 144 mg/dL (70-99) Calcium Level 9.1 mg/dL (8.5-10.1) Troponin I Quantitative < 0.017 ng/mL (0-0.055) OG-Gfg-X-Type Natriuretic Peptide 9998 pg/mL (0-124) SARS-CoV-2 Antigen (Rapid) Negative (NEGATIVE) Coronavirus (COVID-19)(PCR) Not detected (NOT DETECTD) Urine Collection Type U cath Urine Color Allegra Urine Clarity Cloudy Urine pH 8.5 Urine Specific [place] 1.020 Urine Protein 100 mg/dl (NEG-TRACE) Urine Glucose (UA) Neg mg/dL (NEG) Urine Ketones (Stick) Neg mg/dL (NEG) Urine Blood Large (NEG) Urine Nitrite Neg (NEG) Urine Bilirubin Small (NEG) Urine Urobilinogen Dipstick 0.2 mg/dL (0.2 mg/dL) Urine Leukocyte Esterase Mod (NEG) Urine RBC >40 /HPF (0-2) Urine WBC 11-20 /HPF (0-4) Urine Bacteria Many /HPF (0-FEW) Test 01/12/21 22:05 01/13/21 01:35 01/13/21 05:40 01/14/21 05:50 Lactic Acid Level 2.1 mmol/L (0.4-2.0) 1.3 mmol/L (0.4-2.0) White Blood Count 9.1 x10^3/uL (4.0-11.0) 10.8 x10^3/uL (4.0-11.0) Red Blood Count 3.56 x10^6/uL (4.30-5.70) 3.50 x10^6/uL (4.30-5.70) Hemoglobin 11.3 g/dL (13.0-17.5) 11.2 g/dL (13.0-17.5) Hematocrit 33.7 % (39.0-53.0) 33.2 % (39.0-53.0) Mean Corpuscular Volume 95 fL (79-100) 95 fL (79-100) Mean Corpuscular Hemoglobin 32 pg (25-35) 32 pg (25-35) Mean Corpuscular Hemoglobin Concent 34 g/dL (31-37) 34 g/dL (31-37) Red Cell Distribution Width 14.3 % (11.5-14.5) 14.8 % (11.5-14.5) Platelet Count 126 x10^3/uL (140-400) 143 x10^3/uL (140-400) Neutrophils (%) (Auto) 88 % (31-73) 86 % (31-73) Lymphocytes (%) (Auto) 4 % (24-48) 4 % (24-48) Monocytes (%) (Auto) 7 % (0-9) 9 % (0-9) Eosinophils (%) (Auto) 2 % (0-3) 1 % (0-3) Basophils (%) (Auto) 0 % (0-3) 0 % (0-3) Neutrophils # (Auto) 8.0 x10^3uL (1.8-7.7) 9.2 x10^3uL (1.8-7.7) Lymphocytes # (Auto) 0.3 x10^3/uL (1.0-4.8) 0.4 x10^3/uL (1.0-4.8) Monocytes # (Auto) 0.6 x10^3/uL (0.0-1.1) 1.0 x10^3/uL (0.0-1.1) Eosinophils # (Auto) 0.2 x10^3/uL (0.0-0.7) 0.1 x10^3/uL (0.0-0.7) Basophils # (Auto) 0.0 x10^3/uL (0.0-0.2) 0.0 x10^3/uL (0.0-0.2) Sodium Level 127 mmol/L (136-145) 128 mmol/L (136-145) Potassium Level 3.4 mmol/L (3.5-5.1) 3.1 mmol/L (3.5-5.1) Chloride Level 93 mmol/L (98-107) 93 mmol/L (98-107) Carbon Dioxide Level 23 mmol/L (21-32) 24 mmol/L (21-32) Anion Gap 11 (6-14) 11 (6-14) Blood Urea Nitrogen 50 mg/dL (8-26) 58 mg/dL (8-26) Creatinine 2.3 mg/dL (0.7-1.3) 2.8 mg/dL (0.7-1.3) Estimated GFR (Cockcroft-Gault) 28.4 22.6 BUN/Creatinine Ratio 22 (6-20) Glucose Level 104 mg/dL (70-99) 131 mg/dL (70-99) Calcium Level 8.4 mg/dL (8.5-10.1) 8.9 mg/dL (8.5-10.1) Total Bilirubin 1.4 mg/dL (0.2-1.0) Aspartate Amino Transf (AST/SGOT) 32 U/L (15-37) Alanine Aminotransferase (ALT/SGPT) 17 U/L (16-63) Alkaline Phosphatase 60 U/L (46-116) Total Protein 6.4 g/dL (6.4-8.2) Albumin 2.1 g/dL (3.4-5.0) Albumin/Globulin Ratio 0.5 (1.0-1.7) Magnesium Level 2.1 mg/dL (1.8-2.4) Troponin I Quantitative < 0.017 ng/mL (0-0.055) Microbiology Micro Microbiology 01/12/21 Blood Culture - Preliminary, Resulted NO GROWTH AFTER 1 DAY... 01/12/21 Urine Culture - Final, Complete Physical Exams HEENT: Neck Supple W Full Motion Chest: Symmetric Lungs: Clear to Auscultation Heart: irregularly irregular (AFIb, rate controlled ) Abdomen: Soft N/T Extremities: No Edema Neurology: alert, follow commands Assessment Assessment 1. Weakness 2. Bacteremia; BC wtih GNR in 1/4 bottles. ongoing antibiotic therapy as per IM 3. LUIS; Cr ^ 2.8 4. BPH, renal stone with chronic indwelling Gurrola. UA notable for UTI 5. Acute on chronic diastolic CHF; improved s/p IV diuresis. Will hold off on further diuresis with ^ Cr 6. Hyponatremia, hypokalemia 7. Hypertension; low end 8. Hyperlipidemia 9. AFIB; rate controlled. ? new finding. Continue BB. ASA therapy for stroke prevention. Consider addition of anticoagulation. Echo to assess LV systolic function TOMAS BANSAL APRN Jan 14, 2021 08:56
[2021-01-14] MEDS ORDERED: ELECTROLYTE (NON-ICU) PROTOCOL. MC PRN (09:15)
[2021-01-14] MEDS ORDERED: POTASSIUM CHLORIDE 20 MEQ TABLET.ER. PO ONE (09:15)
[2021-01-14] MEDS: CARVEDILOL 3.125 MG TABLET PO SCH ×2 (09:30→17:30)
[2021-01-14 11:02] VITALS: BP 90/55
[2021-01-14 16:27] VITALS: BP 110/65
--- NOTE | 2021-01-14 17:23 | CARD ---
MR#: [id number] Date of Study: 01/14/2021 Ordering Physician: ANNITA ZAVALA, Referring Physician: ANNITA ZAVALA, Tech: Rosaura Barreto, [facility] APPROVED REPORT EXAM: Two-dimensional and M-mode echocardiogram with Doppler and color Doppler. Other Information Quality : AverageHR: 59bpm INDICATION Congestive Heart Failure RISK FACTORS Hypertension Smoking 2D DIMENSIONS RVDd3.7 (2.9-3.5cm)Left Atrium(2D)3.6 (1.6-4.0cm) IVSd1.0 (0.7-1.1cm)Aortic Root(2D)3.2 (2.0-3.7cm) LVDd6.4 (3.9-5.9cm)LVOT Diameter2.1 (1.8-2.4cm) PWd1.0 (0.7-1.1cm)LVDs4.3 (2.5-4.0cm) FS (%) 32.4 %SV123.8 ml Aortic Valve AoV Peak Efrem.149.5cm/sAoV VTI30.5cm AO Peak GR.8.9mmHgLVOT Peak Efrem.137.0cm/s LVOT VTI 22.70cmAO Mean GR.5mmHg RAMÓN (VMAX)3.23sx6YAO (VTI)2.53cm2 AI P 1/2 [id number] Mitral Valve MV E Juwvrnjc57.8cm/sMV E Peak Gr.3mmHg MV DECEL [id number] A Iyosxreh13.9cm/s MV E Mean Gr.1mmHgE/A Ratio2.8 Pulmonary Valve PV Peak Zeelozfx29.5cm/sPV Peak Grad.3mmHg Tricuspid Valve TR P. Gttimwaq900kr/sRAP [id number] TR Peak Gr.71ukFoPJWO19cpLt LEFT VENTRICLE The left ventricle is normal size. There is normal left ventricular wall thickness. The left ventricu lar systolic function is normal and the ejection fraction is within normal range. The Ejection Fracti on is 50-55%. Wall motion consistent with conduction abnormality. Tissue Doppler imaging reveals mode rate left ventricular diastolic dysfunction. RIGHT VENTRICLE The right ventricle is borderline dilated. There is normal right ventricular wall thickness. The righ t ventricular systolic function is normal. ATRIA The left atrium size is normal. The right atrium is borderline dilated. The interatrial septum is int act with no evidence for an atrial septal defect or patent foramen ovale as noted on 2-D or Doppler i maging. AORTIC VALVE The aortic valve is normal in structure and function. Doppler and Color Flow revealed trace aortic re gurgitation. Calculated aortic valve area is 2.9 cm2 with maximum pressure gradient of 9 mmHg and david n pressure gradient of 5 mmHg. There is no significant aortic valvular stenosis. MITRAL VALVE The mitral valve is normal in structure and function. There is no evidence of mitral valve prolapse. There is no mitral valve stenosis. Doppler and Color-flow revealed trace mitral regurgitation. TRICUSPID VALVE The tricuspid valve is normal in structure and function. Doppler and Color Flow revealed trace tricus pid regurgitation with an estimated PAP of 34 mmHg. There is no tricuspid valve stenosis. PULMONIC VALVE The pulmonary valve is normal in structure and function. Doppler and Color Flow revealed trace pulmon ic valvular regurgitation. GREAT VESSELS The aortic root is normal in size. The ascending aorta is normal in size. The IVC is normal in size a nd collapses >50% with inspiration. PERICARDIAL EFFUSION There is no evidence of significant pericardial effusion. Critical Notification Critical Value: No <Conclusion> The left ventricle is normal size. The left ventricular systolic function is normal and the ejection fraction is within normal range. The Ejection Fraction is 50-55%. Doppler and Color Flow revealed trace aortic regurgitation. There is no significant aortic valvular stenosis. Doppler and Color-flow revealed trace mitral regurgitation. Doppler and Color Flow revealed trace tricuspid regurgitation with an estimated PAP of 34 mmHg. Signed by : Josue Barroso MD Electronically Approved : 01/14/2021 17:22:35
[2021-01-14 20:12] VITALS: BP 111/67
[2021-01-15 00:17] VITALS: BP 116/76
--- NOTE | 2021-01-15 03:12 | PN ---
SUBJECTIVE: The patient is admitted with possible sepsis. The patient has been having problems with low sodium and low potassium. Says he feels he is a little better today as his sodium and potassium have come up into a reasonable range. The patient otherwise seems to be resting fairly comfortably. OBJECTIVE: VITAL SIGNS: The patient's blood pressure is that of 110/67, respiratory rate 18, pulse 64. He is afebrile, 93% on room air. The patient is being treated for sepsis. GENERAL: Otherwise, alert and oriented. LUNGS: Diminished, basically clear. CARDIOVASCULAR: Stable. ABDOMEN: Soft. Large herniated mass which I believe is somewhat infected panniculitis causing the sepsis as this thing protrudes significantly below the abdominal wall. The patient otherwise seems to be resting fairly comfortably. EXTREMITIES: No clubbing, cyanosis, nor edema. LABORATORY DATA: The patient's labs show white count 10, hemoglobin 11 and 33. Chemistries basically showing some increase in sodium to 128, potassium 3.1, put on electrolyte replacement. His BUN and creatinine have also increased to 58 and 2.8. IMPRESSION: Sepsis, chronic kidney disease stage IIIB, panniculitis, hyponatremia, hypokalemia, bacteremia, positive blood culture, acute kidney injury, benign prostatic hypertrophy with renal stone, chronic indwelling Gurrola, acute on chronic diastolic congestive heart failure, hypertension, hyperlipidemia, atrial fibrillation with rate control. PLAN: Continue on present IV antibiotic therapy. Continue to monitor any other signs of possible infectious etiology. PJC/EKT/ANI DR: MARIELLE/rosmery TID: [id number]
[2021-01-15] MEDS: PIPERACILLIN/TAZOBACTAM 2.25 GM in IV NORMAL SALINE 50ML 50 ML IV SCH ×3 (05:57→18:04)
[2021-01-15 06:10] VITALS: BP 101/61
[2021-01-15] MEDS: GEMFIBROZIL 600 MG TABLET. PO SCH ×2 (08:00→20:17)
[2021-01-15] MEDS: ASPIRIN ENTERIC COATED 81 MG TABLET.DR. PO SCH (08:01)
[2021-01-15] MEDS: FINASTERIDE 5 MG TABLET. PO SCH (08:01)
[2021-01-15] MEDS: PANTOPRAZOLE 40 MG TABLET. PO SCH (08:01)
[2021-01-15] MEDS: POTASSIUM CHLORIDE 10 MEQ TABLET.ER. PO SCH ×2 (08:01→20:17)
[2021-01-15] MEDS: TAMSULOSIN 0.4 MG CAP.ER.24H. PO SCH ×2 (08:01→20:17)
[2021-01-15] MEDS: CARVEDILOL 3.125 MG TABLET PO SCH ×2 (08:02→16:02)
--- NOTE | 2021-01-15 08:39 | PDOC2 ---
CARDIAC CONSULT CURRENT MEDICATIONS Current Medications Current Medications Ondansetron HCl (Zofran) 4 mg PRN Q8HRS PRN IVP NAUSEA/VOMITING; Start 01/12/21 at 16:00; Stop 01/13/21 at 15:59; Status DC Acetaminophen (Tylenol) 650 mg PRN Q4HRS PRN PO FEVER > 100.3'F; Start 01/12/21 at 16:00; Stop 01/13/21 at 15:59; Status DC Nitroglycerin (Nitrostat) 0.4 mg PRN Q5MIN PRN SL CHEST PAIN; Start 01/12/21 at 16:00; Stop 01/13/21 at 15:59; Status DC Potassium Chloride/Sodium Chloride 1,000 ml @ 175 mls/hr 1X ONCE IV Last administered on 01/12/21at 16:18; Start 01/12/21 at 16:00; Stop 01/12/21 at 21:42; Status DC Aspirin (Aspirin Enteric Coated) 81 mg DAILY PO Last administered on 01/15/21at 08:01; Start 01/13/21 at 09:00 Carvedilol (Coreg) 6.25 mg BIDWMEALS PO Last administered on 01/14/21at 08:04; Start 01/13/21 at 08:00; Stop 01/14/21 at 09:12; Status DC Gemfibrozil (Lopid) 600 mg BID PO Last administered on 01/15/21at 08:00; Start 01/12/21 at 21:00 Pantoprazole Sodium (Protonix) 40 mg DAILYAC PO Last administered on 01/15/21at 08:01; Start 01/13/21 at 07:30 Tamsulosin HCl (Flomax) 0.4 mg BID PO Last administered on 01/15/21at 08:01; Start 01/12/21 at 21:00 Piperacillin Sod/ Tazobactam Sod (Zosyn Per Pharmacy) 1 each PRN DAILY PRN MC SEE COMMENTS; Start 01/12/21 at 21:30 Levofloxacin/ Dextrose (Levaquin Per Pharmacy) 1 each PRN DAILY PRN MC SEE COMMENTS; Start 01/12/21 at 21:30 Zolpidem Tartrate (Ambien) 5 mg PRN QHS PRN PO INSOMNIA, MAY REPEAT IN 1HR; Start 01/12/21 at 21:45 Piperacillin Sod/ Tazobactam Sod 2.25 gm/Sodium Chloride 50 ml @ 100 mls/hr Q6HRS IV Last administered on 01/15/21at 05:57; Start 01/12/21 at 22:00 Levofloxacin/ Dextrose 100 ml @ 100 mls/hr ONCE ONCE IV Last administered on 01/12/21at 22:19; Start 01/12/21 at 23:00; Stop 01/12/21 at 23:59; Status DC Levofloxacin/ Dextrose 50 ml @ 50 mls/hr Q24H IV Last administered on 01/14/21at 20:38; Start 01/13/21 at 21:00 Influenza Virus Vaccine Quadrival (Flulaval Quad [id number] Syringe) 0.5 ml ONCE ONCE VAX IM Last administered on 01/13/21at 09:11; Start 01/13/21 at 09:00; Stop 01/13/21 at 09:01; Status DC Furosemide (Lasix) 40 mg DAILY IVP Last administered on 01/13/21at 09:15; Start 01/13/21 at 09:00; Stop 01/14/21 at 08:57; Status DC Finasteride (Proscar) 5 mg DAILY PO Last administered on 01/15/21at 08:01; Sta rt 01/13/21 at 09:00 Potassium Chloride (Klor-Con) 10 meq BID PO Last administered on 01/15/21at 08:01; Start 01/13/21 at 09:30 Potassium Chloride (Klor-Con) 40 meq 1X ONCE PO Last administered on 01/14/21at 10:47; Start 01/14/21 at 09:15; Stop 01/14/21 at 09:16; Status DC Info (Non-Icu Electrolyte Protocol) 1 ea CONT PRN PRN MC PER PROTOCOL; Start 01/14/21 at 09:15 Carvedilol (Coreg) 3.125 mg BIDWMEALS PO Last administered on 01/15/21at 08:02; Start 01/14/21 at 09:30 Active Scripts Active Reported Carvedilol (Carvedilol) 6.25 Mg Tablet 6.25 Mg PO BIDWMEALS Gemfibrozil 600 Mg Tablet 600 Mg PO BID Flomax (Tamsulosin Hcl) 0.4 Mg Cap.er.24h 0.4 Mg PO BID Pantoprazole Sodium 40 Mg Tablet.dr 40 Mg PO DAILYAC Fish Oil ([place]-3 Fatty Acids) 500 Mg Capsule.dr 500 Mg PO DAILY Triamterene-Hctz 37.5-25 Mg Tb (Triamterene/Hydrochlorothiazid) 1 Each Tablet 1 Each PO DAILY Aspir 81 (Aspirin) 81 Mg Tablet.dr 81 Mg PO DAILY ALLERGIES Allergies: Coded Allergies: No Known Drug Allergies (Unverified , 01/12/21) VITALS Vital Signs Vital Signs Date Time Temp Pulse Resp B/P (MAP) Pulse Ox O2 Delivery O2 Flow Rate FiO2 01/15/21 08:02 65 101/61 01/15/21 06:10 98.5 18 97 Room Air LABS LABS Laboratory Tests Test 01/14/21 05:50 White Blood Count 10.8 x10^3/uL (4.0-11.0) Red Blood Count 3.50 x10^6/uL (4.30-5.70) Hemoglobin 11.2 g/dL (13.0-17.5) Hematocrit 33.2 % (39.0-53.0) Mean Corpuscular Volume 95 fL (79-100) Mean Corpuscular Hemoglobin 32 pg (25-35) Mean Corpuscular Hemoglobin Concent 34 g/dL (31-37) Red Cell Distribution Width 14.8 % (11.5-14.5) Platelet Count 143 x10^3/uL (140-400) Neutrophils (%) (Auto) 86 % (31-73) Lymphocytes (%) (Auto) 4 % (24-48) Monocytes (%) (Auto) 9 % (0-9) Eosinophils (%) (Auto) 1 % (0-3) Basophils (%) (Auto) 0 % (0-3) Neutrophils # (Auto) 9.2 x10^3uL (1.8-7.7) Lymphocytes # (Auto) 0.4 x10^3/uL (1.0-4.8) Monocytes # (Auto) 1.0 x10^3/uL (0.0-1.1) Eosinophils # (Auto) 0.1 x10^3/uL (0.0-0.7) Basophils # (Auto) 0.0 x10^3/uL (0.0-0.2) Sodium Level 128 mmol/L (136-145) Potassium Level 3.1 mmol/L (3.5-5.1) Chloride Level 93 mmol/L (98-107) Carbon Dioxide Level 24 mmol/L (21-32) Anion Gap 11 (6-14) Blood Urea Nitrogen 58 mg/dL (8-26) Creatinine 2.8 mg/dL (0.7-1.3) Estimated GFR (Cockcroft-Gault) 22.6 Glucose Level 131 mg/dL (70-99) Calcium Level 8.9 mg/dL (8.5-10.1) Magnesium Level 2.1 mg/dL (1.8-2.4) Troponin I Quantitative < 0.017 ng/mL (0-0.055) Triglycerides Level 223 mg/dL (0-150) Cholesterol Level 97 mg/dL (0-200) LDL Cholesterol, Calculated 47 mg/dL (0-100) VLDL Cholesterol, Calculated 44 mg/dL (0-40) Non-HDL Cholesterol Calculated 91 mg/dL (0-129) HDL Cholesterol 6 mg/dL (40-60) Cholesterol/HDL Ratio 16.0 TOMAS BANSAL APRN Jan 15, 2021 08:39
--- NOTE | 2021-01-15 08:40 | PDOC ---
CARDIO Progress Notes Date & Time Date of Service DATE: 01/15/21 TIME: 08:40 Time of Evaluation 08:40 Subjective Notes No chest pain, shortness of breath, dizziness. Feeling better today. Vitals Vitals Vital Signs Date Time Temp Pulse Resp B/P (MAP) Pulse Ox O2 Delivery O2 Flow Rate FiO2 01/15/21 08:02 65 101/61 01/15/21 06:10 98.5 18 97 Room Air Weight Weight [ ] Input and Output I.O. Intake and Output 01/15/21 07:00 Intake Total 1960 ml Output Total 3000 ml Balance -1040 ml Intake Oral 1760 ml IV Total 200 ml Output Urine Total 2800 ml Stool Total 200 ml # Bowel Movements 1 Laboratory Labs Laboratory Tests Test 01/14/21 05:50 White Blood Count 10.8 x10^3/uL (4.0-11.0) Red Blood Count 3.50 x10^6/uL (4.30-5.70) Hemoglobin 11.2 g/dL (13.0-17.5) Hematocrit 33.2 % (39.0-53.0) Mean Corpuscular Volume 95 fL (79-100) Mean Corpuscular Hemoglobin 32 pg (25-35) Mean Corpuscular Hemoglobin Concent 34 g/dL (31-37) Red Cell Distribution Width 14.8 % (11.5-14.5) Platelet Count 143 x10^3/uL (140-400) Neutrophils (%) (Auto) 86 % (31-73) Lymphocytes (%) (Auto) 4 % (24-48) Monocytes (%) (Auto) 9 % (0-9) Eosinophils (%) (Auto) 1 % (0-3) Basophils (%) (Auto) 0 % (0-3) Neutrophils # (Auto) 9.2 x10^3uL (1.8-7.7) Lymphocytes # (Auto) 0.4 x10^3/uL (1.0-4.8) Monocytes # (Auto) 1.0 x10^3/uL (0.0-1.1) Eosinophils # (Auto) 0.1 x10^3/uL (0.0-0.7) Basophils # (Auto) 0.0 x10^3/uL (0.0-0.2) Sodium Level 128 mmol/L (136-145) Potassium Level 3.1 mmol/L (3.5-5.1) Chloride Level 93 mmol/L (98-107) Carbon Dioxide Level 24 mmol/L (21-32) Anion Gap 11 (6-14) Blood Urea Nitrogen 58 mg/dL (8-26) Creatinine 2.8 mg/dL (0.7-1.3) Estimated GFR (Cockcroft-Gault) 22.6 Glucose Level 131 mg/dL (70-99) Calcium Level 8.9 mg/dL (8.5-10.1) Magnesium Level 2.1 mg/dL (1.8-2.4) Troponin I Quantitative < 0.017 ng/mL (0-0.055) Triglycerides Level 223 mg/dL (0-150) Cholesterol Level 97 mg/dL (0-200) LDL Cholesterol, Calculated 47 mg/dL (0-100) VLDL Cholesterol, Calculated 44 mg/dL (0-40) Non-HDL Cholesterol Calculated 91 mg/dL (0-129) HDL Cholesterol 6 mg/dL (40-60) Cholesterol/HDL Ratio 16.0 Microbiology Micro Microbiology 01/12/21 Blood Culture - Final, Complete 01/12/21 Urine Culture - Final, Complete Physical Exams HEENT: Neck Supple W Full Motion Chest: Symmetric Lungs: Clear to Auscultation Heart: irregularly irregular (AFIb, rate controlled ) Abdomen: Soft N/T Extremities: No Edema Neurology: alert, follow commands Assessment Assessment 1. Weakness 2. Bacteremia; BC wtih GNR in 1/4 bottles. ongoing antibiotic therapy as per IM 3. LUIS; Cr ^ 2.8 4. BPH, renal stone with chronic indwelling Gurrola. UA notable for UTI 5. Acute on chronic diastolic CHF; improved s/p IV diuresis. Will hold off on further diuresis with ^ Cr 6. Hyponatremia, hypokalemia 7. Hypertension; low end 8. Hyperlipidemia 9. AFIB; rate controlled. Continue BB. ASA therapy for stroke prevention. Consider addition of anticoagulation. Echo with preserved LV systolic function TOMAS BANSAL APRN Jan 15, 2021 08:40
[2021-01-15 11:19] VITALS: BP 103/58
[2021-01-15 16:05] VITALS: BP 108/69
[2021-01-15 19:00] VITALS: BP 128/75
[2021-01-15] MEDS: LACTOBACILLUS RHAMNOSUS GG 1 CAPSULE. PO SCH (20:17)
--- NOTE | 2021-01-15 21:12 | PN ---
DATE: 01/15/2021 SUBJECTIVE: A 70-year-old gentleman in with gram-negative bacteremia. The patient on IV antibiotic therapy. He continues to be on Zosyn and Levaquin. Final culture on that gram-negative still pending. Otherwise, he is resting fairly comfortably, making fairly good progress overall. Sodium is still slightly low at 128, 3.1, electrolyte replacement. BUN and creatinine 58, 2.8. The patient continues to be monitored on IV antibiotic therapy. OBJECTIVE: VITAL SIGNS: Blood pressure 105/60, respiratory rate 18, pulse 60, afebrile. The patient room air 97%. GENERAL: The patient otherwise alert and oriented. LUNGS: Diminished, but clear. CARDIOVASCULAR: Stable. ABDOMEN: Soft. The patient has marked enlarged hernia, apparently unable to have it surgically repaired because it has been now too long. EXTREMITIES: No clubbing, cyanosis or edema. NEUROLOGIC: Intact. IMPRESSION: Sepsis, bacteremia, stage III kidney disease, panniculitis, hyponatremia, hypokalemia, bacteremia, acute renal injury, benign prostatic hypertrophy, renal stones, chronic indwelling Gurrol[place], chronic atrial fibrillation at times with rate control. PLAN: The patient continued to be monitored carefully, make further evaluation on him as indicated. With IV antibiotic therapy, possible placement once final cultures have been determined. MARIELLE/RD/ELDER DR: MARIELLE/rosmery TID: [id number]
[2021-01-15 23:00] VITALS: BP 93/52
[2021-01-16 05:00] VITALS: BP 114/56
[2021-01-16] MEDS: PIPERACILLIN/TAZOBACTAM 2.25 GM in IV NORMAL SALINE 50ML 50 ML IV SCH ×5 (05:05→23:05)
[2021-01-16 07:19] LABS: BASO % 0 % (0-3); EOS # 0.2 x10^3/uL (0.0-0.7); EOS % 2 % (0-3); HEMATOCRIT 32.8 % (39.0-53.0); HEMOGLOBIN 10.8 g/dL (13.0-17.5); LYMPH # 0.6 x10^3/uL (1.0-4.8); LYMPH % 5 % (24-48); MEAN CORPUSCULAR HEMOGLOBIN 32 pg (25-35); MEAN CORPUSCULAR HGB CONC 33 g/dL (31-37); MEAN CORPUSCULAR VOLUME 96 fL (79-100); MONO # 0.9 x10^3/uL (0.0-1.1); MONO % 8 % (0-9); NEUT # 9.5 x10^3uL (1.8-7.7); NEUT % 85 % (31-73); PLATELET COUNT 232 x10^3/uL (140-400); RED BLOOD COUNT 3.43 x10^6/uL (4.30-5.70); RED CELL DISTRIBUTION WIDTH 14.9 % (11.5-14.5); WHITE BLOOD COUNT 11.3 x10^3/uL (4.0-11.0)
[2021-01-16 07:22] LABS: CALCIUM 8.8 mg/dL (8.5-10.1); CREATININE 2.4 mg/dL (0.7-1.3); GFR 27.1; POTASSIUM 3.5 mmol/L (3.5-5.1)
[2021-01-16] MEDS: ASPIRIN ENTERIC COATED 81 MG TABLET.DR. PO SCH (07:56)
[2021-01-16] MEDS: TAMSULOSIN 0.4 MG CAP.ER.24H. PO SCH ×2 (07:57→19:36)
[2021-01-16] MEDS: PANTOPRAZOLE 40 MG TABLET. PO SCH (07:57)
[2021-01-16] MEDS: FINASTERIDE 5 MG TABLET. PO SCH (07:57)
[2021-01-16] MEDS: POTASSIUM CHLORIDE 10 MEQ TABLET.ER. PO SCH ×2 (07:57→19:34)
[2021-01-16] MEDS: LACTOBACILLUS RHAMNOSUS GG 1 CAPSULE. PO SCH ×2 (07:57→19:34)
[2021-01-16] MEDS: GEMFIBROZIL 600 MG TABLET. PO SCH ×2 (07:57→19:34)
[2021-01-16] MEDS: CARVEDILOL 3.125 MG TABLET PO SCH ×2 (07:58→17:30)
--- NOTE | 2021-01-16 08:36 | PDOC ---
TOMAS BANSAL ROSENDO 01/16/21 0836: CARDIO Progress Notes Date & Time Date of Service DATE: 01/16/21 TIME: 08:36 Time of Evaluation 08:36 Subjective Notes Weakness improved. Vitals Vitals Vital Signs Date Time Temp Pulse Resp B/P (MAP) Pulse Ox O2 Delivery O2 Flow Rate FiO2 01/16/21 07:58 80 114/56 01/16/21 05:00 98.4 18 98 Room Air Weight Weight [ ] Input and Output I.O. Intake and Output 01/16/21 07:00 Intake Total 1490 ml Output Total 3500 ml Balance -2010 ml Intake Oral 1240 ml Other 250 ml Output Urine Total 3500 ml Laboratory Labs Laboratory Tests Test 01/16/21 06:13 White Blood Count 11.3 x10^3/uL (4.0-11.0) Red Blood Count 3.43 x10^6/uL (4.30-5.70) Hemoglobin 10.8 g/dL (13.0-17.5) Hematocrit 32.8 % (39.0-53.0) Mean Corpuscular Volume 96 fL (79-100) Mean Corpuscular Hemoglobin 32 pg (25-35) Mean Corpuscular Hemoglobin Concent 33 g/dL (31-37) Red Cell Distribution Width 14.9 % (11.5-14.5) Platelet Count 232 x10^3/uL (140-400) Neutrophils (%) (Auto) 85 % (31-73) Lymphocytes (%) (Auto) 5 % (24-48) Monocytes (%) (Auto) 8 % (0-9) Eosinophils (%) (Auto) 2 % (0-3) Basophils (%) (Auto) 0 % (0-3) Neutrophils # (Auto) 9.5 x10^3uL (1.8-7.7) Lymphocytes # (Auto) 0.6 x10^3/uL (1.0-4.8) Monocytes # (Auto) 0.9 x10^3/uL (0.0-1.1) Eosinophils # (Auto) 0.2 x10^3/uL (0.0-0.7) Basophils # (Auto) 0.0 x10^3/uL (0.0-0.2) Sodium Level 133 mmol/L (136-145) Potassium Level 3.5 mmol/L (3.5-5.1) Chloride Level 101 mmol/L (98-107) Carbon Dioxide Level 22 mmol/L (21-32) Anion Gap 10 (6-14) Blood Urea Nitrogen 52 mg/dL (8-26) Creatinine 2.4 mg/dL (0.7-1.3) Estimated GFR (Cockcroft-Gault) 27.1 Glucose Level 111 mg/dL (70-99) Calcium Level 8.8 mg/dL (8.5-10.1) Microbiology Micro Microbiology 01/12/21 Blood Culture - Preliminary, Resulted 01/12/21 Urine Culture - Final, Complete Physical Exams HEENT: Neck Supple W Full Motion Chest: Symmetric Lungs: Clear to Auscultation Heart: irregularly irregular (AFIb, rate controlled ) Abdomen: Soft N/T Extremities: No Edema Neurology: alert, oriented, follow commands Assessment Assessment 1. Weakness 2. Bacteremia; BC wtih GNR in / bottles. ongoing antibiotic therapy as per IM 3. LUIS; Cr ^ 2.8 4. BPH, renal stone with chronic indwelling Gurrola. UA notable for UTI 5. Acute on chronic diastolic CHF; improved s/p IV diuresis. 6. Hyponatremia, hypokalemia 7. Hypertension; low end 8. Hyperlipidemia 9. AFIB; rate controlled. Continue BB. ASA therapy for stroke prevention. Consider addition of anticoagulation. Echo with preserved LV systolic function ADRIA FRASER MD 01/16/21 [id number]: CARDIO Progress Notes Plan Plan Patient seen and examined. Agree with above nurse practitioner note. Would recommend anticoagulation given the patient's risk factors and chronic atrial fibrillation. Supportive care. Consider outpatient cardiology follow-up TOMAS BANSAL APRN Jan 16, 2021 08:36 ADRIA FRASER MD Jan 16, 2021 18:47
[2021-01-16 11:05] VITALS: BP 105/58
[2021-01-16 15:43] VITALS: BP 116/71
[2021-01-16 19:00] VITALS: BP 125/67
[2021-01-16 23:18] VITALS: BP 101/62
--- NOTE | 2021-01-16 23:58 | PN ---
SUBJECTIVE: A 70-year-old gentleman, gram-negative sepsis, Klebsiella pneumoniae, and septic, doing better on IV antibiotic therapy. The patient seems to be tolerating the medications well. Says he feels a little better. OBJECTIVE: VITAL SIGNS: Blood pressure 120/70, respiratory rate 18, pulse 60, afebrile. GENERAL: The patient is alert and oriented. Speech is fluent, spontaneous, and appropriate. LUNGS: Diminished, but clear throughout. CARDIOVASCULAR: Regular sinus rhythm. The abdomen is soft. The patient has a marked abdominal hernia with panniculus. EXTREMITIES: No clubbing, cyanosis, or edema. NEUROLOGIC: Intact. PLAN: Continue to monitor the patient accordingly, make further evaluation on him as indicated for those situations. IMPRESSION: Gram-negative sepsis with Klebsiella pneumoniae. KETURAH DR: Cosme TID: [id number]
[2021-01-17] MEDS: PIPERACILLIN/TAZOBACTAM 2.25 GM in IV NORMAL SALINE 50ML 50 ML IV SCH ×2 (05:00→11:57)
[2021-01-17] MEDS: TAMSULOSIN 0.4 MG CAP.ER.24H. PO SCH ×2 (07:43→19:59)
[2021-01-17] MEDS: FINASTERIDE 5 MG TABLET. PO SCH (07:43)
[2021-01-17] MEDS: POTASSIUM CHLORIDE 10 MEQ TABLET.ER. PO SCH ×2 (07:44→19:59)
[2021-01-17] MEDS: CARVEDILOL 3.125 MG TABLET PO SCH ×2 (07:44→16:45)
[2021-01-17] MEDS: GEMFIBROZIL 600 MG TABLET. PO SCH ×2 (07:44→19:59)
[2021-01-17] MEDS: PANTOPRAZOLE 40 MG TABLET. PO SCH (07:44)
[2021-01-17] MEDS: ASPIRIN ENTERIC COATED 81 MG TABLET.DR. PO SCH (07:44)
[2021-01-17] MEDS: LACTOBACILLUS RHAMNOSUS GG 1 CAPSULE. PO SCH ×2 (07:44→19:59)
[2021-01-17 12:33] VITALS: BP 113/62
[2021-01-17 16:01] VITALS: BP 108/57
[2021-01-17 19:00] VITALS: BP 104/64
[2021-01-17 23:36] VITALS: BP 124/65
[2021-01-18 05:54] VITALS: BP 124/67
--- NOTE | 2021-01-18 07:08 | PN ---
DATE: 01/17/2021 SUBJECTIVE: The patient in with Gram-negative Klebsiella sepsis. He is improving. Blood pressure is coming up. Did have a low-grade temperature last night of 99.6 but remains afebrile today, feeling somewhat better. OBJECTIVE: VITAL SIGNS: Blood pressure 108/60, respirations of 18, pulse 60; presently afebrile, 97% on room air. LUNGS: Are diminished but basically clear. CARDIOVASCULAR: Stable. ABDOMEN: Noted that he has a severe ventral hernia extending down to the mid thigh. Other than that, the patient seems to be making fairly good progress overall. Hemoglobin 10.8 and the like. LABORATORY DATA: The sodium and potassium have come back up until to the range. The patient seems to be making fairly good progress overall and will continue to be monitored. Creatinine has come down to 2.4 and a BUN of 52. IMPRESSION: Gram-negative sepsis, Klebsiella pneumoniae, chronic kidney disease stage IIIB, panniculitis, hypokalemia, resolved, benign prostatic hypertrophy, renal stones, chronic indwelling Gurrol[place], and chronic atrial fibrillation. PLAN: Continue with IV antibiotic and possibly discharge in the a.m. MARIELLE/JESSE/ELDER DR: Cosme TID: [id number]
[2021-01-18] MEDS: TAMSULOSIN 0.4 MG CAP.ER.24H. PO SCH (09:00)
[2021-01-18] MEDS: FINASTERIDE 5 MG TABLET. PO SCH (09:10)
[2021-01-18] MEDS: ASPIRIN ENTERIC COATED 81 MG TABLET.DR. PO SCH (09:10)
[2021-01-18 09:11] VITALS: BP 124/67
[2021-01-18] MEDS: CARVEDILOL 3.125 MG TABLET PO SCH (09:11)
[2021-01-18] MEDS: LACTOBACILLUS RHAMNOSUS GG 1 CAPSULE. PO SCH (09:11)
[2021-01-18] MEDS: PANTOPRAZOLE 40 MG TABLET. PO SCH (09:11)
[2021-01-18] MEDS: POTASSIUM CHLORIDE 10 MEQ TABLET.ER. PO SCH (09:11)
[2021-01-18] MEDS: GEMFIBROZIL 600 MG TABLET. PO SCH (09:11)
[2021-01-18] MEDS ORDERED: LEVO500T9 PO (11:01)
[2021-01-18] MEDS ORDERED: FINA5TAB PO (11:01)
--- NOTE | 2021-01-18 15:23 | DS ---
DATE OF DISCHARGE: 01/25/2021 HOSPITAL COURSE: A 70-year-old gentleman came in with generalized weakness, and the patient had generalized fatigue, extensive multiple medical history including the patient has had a history of severe sepsis in the past, kidney stones, hypertension, history of alcohol abuse. He has a large abdominal hernia that extends down between his legs. In any case, the patient was treated with IV antibiotic therapy. Cultures finally came back with Klebsiella pneumoniae in his blood, 2 out of 4 cultures. Scan showed a large ventral hernia, moderate bilateral perinephric stranding of the kidneys, diverticulosis, advanced degenerative disease of the back. The patient's labs were white count 11, hemoglobin 10 and 32. Chemistries initially were low. He had a low sodium of 125 and potassium of 3.3, BUN and creatinine 41 and 2.3. He has had some BPH in his series. His BUN and creatinine only came down to 52 and 2.4. He is a continued leg bag. Blood sugar 110. Ammonia level was not checked at this time. In any case, the patient has elevated triglycerides of 223 and the like. In any case, he made good progress overall. He was discharged to home for continue oral antibiotic. He needs to be seen by Urology and Nephrology as an outpatient and make further assessment on those dramatic issues. IMPRESSION: Sepsis, gram-negative Klebsiella pneumoniae, chronic kidney disease stage IV, hyperglycemia, acute on top of chronic diastolic heart failure, hypertriglyceridemia, hyponatremia, hypokalemia, atrial fibrillation, controlled, severe protein malnutrition. 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 He was also seen in-house by Cardiology as well. LAWANDA/KASSI DR: Cosme TID: [id number]
== END 2021-01-18 12:20 | disposition home or self-care (01) | DRG 871 ==
LOC: ER 14:40 → 1 SOUTH 16:03
PROVIDERS: ADMIT Family Medicine; ATTEND Family Medicine
DX: A41.59 Other Gram-negative sepsis (principal); E43 Unspecified severe protein-calorie malnutrition; I50.33 Acute on chronic diastolic (congestive) heart failure; N17.9 Acute kidney failure, unspecified; E87.1 Hypo-osmolality and hyponatremia; I13.0 Hypertensive heart and chronic kidney disease with heart failure and stage 1 through stage 4 chronic kidney disease, or unspecified chronic kidney disease; I48.20 Chronic atrial fibrillation, unspecified; N39.0 Urinary tract infection, site not specified; N18.4 Chronic kidney disease, stage 4 (severe); Z20.822 Contact with and (suspected) exposure to COVID-19; N40.0 Benign prostatic hyperplasia without lower urinary tract symptoms; E78.5 Hyperlipidemia, unspecified; E87.6 Hypokalemia; N20.0 Calculus of kidney; K43.9 Ventral hernia without obstruction or gangrene; E78.00 Pure hypercholesterolemia, unspecified; E78.1 Pure hyperglyceridemia; K57.90 Diverticulosis of intestine, part unspecified, without perforation or abscess without bleeding; Z87.891 Personal history of nicotine dependence; Z87.442 Personal history of urinary calculi; Z82.49 Family history of ischemic heart disease and other diseases of the circulatory system; Z68.35 Body mass index [BMI] 35.0-35.9, adult
CPT/HCPCS: 36415; 71045; 74176; 80048; 80053; 80061; 81001; 83605; 83735; 83880; 84484; 85025; 87015; 87040; 87077; 87086; 87186; 87205; 87426; 90471; 90686; 93005; 93306; 96360; 96361; J1940; J1956; J2543; U0003; 97110; 97530; 97535; 99285-25

== ENCOUNTER 2021-01-30 09:55 | Emergency (ER) | payer MEDICARE ==
[~2021-01-30] VITALS: Ht 175.3 cm; Wt 106.5 kg
[~2021-01-30 09:55] MED LIST changes: +CARV6.2541 PO; +FINA5TAB PO; +GEMF-24 PO; +LEVO500T9 PO; +PANT40TA6 PO; +TAMS0.4C97 PO
[2021-01-30 10:06] VITALS: BP 135/76
--- NOTE | 2021-01-30 10:27 | PHYS DOC ---
Past History Past Medical History: Hypertension Additional Past Medical Histor: lg abd hernia; BHP (LIDIA RUGGIERO) Past Surgical History: No Surgical History (LIDIA RUGGIERO) Smoking: Quit Greater Than 1 Year Alcohol Use: None Drug Use: None (LIDIA RUGGIERO) General Adult EDM: Chief Complaint: URINE CATHETER PROBLEM HPI: HPI: Patient is a 70 year old male who presents with catheter problem. Patient reports he feels suprapubic pressure and has been feeling like he needs to urinate, but has not been able to do so. Patient reports that last night only a minimal amount of urine was in his catheter bag. Whereas the night before last, he states he had to "dump it twice." In the past when the patient has had similar symptoms, he needed his catheter replaced. Patient was discharged 6 days ago from hospital for IV antibiotic treatment for septic UTI. Patient denies fever, chills, weakness, disorientation, confusion, abdominal pain, NVD, hematuria. (LIDIA RUGGIERO) Review of Systems: Review of Systems: 12 systems reviewed. ROS negative except as mentioned in HPI. (LIDIA RUGGIERO) Allergies: Allergies: Allergies Coded Allergies Type Severity Reaction Last Updated Verified No Known Drug Allergies 01/12/21 No (LIDIA RUGGIERO) Physical Exam: PE: Constitutional: Poorly groomed, disheveled, no acute distress, non-toxic appearance. Cardiovascular: Heart rate regular rhythm, no murmur. Lungs & Thorax: Bilateral breath sounds clear to auscultation. Abdomen: Patient has a protuberant, pendulous abdomen secondary to large hernia. Skin: Warm, dry, no erythema, no rash. Back: No step-offs, no tenderness, no CVA tenderness. Neurologic: Alert and oriented x3, normal motor function, normal sensory function, no focal deficits noted. (LIDIA RUGGIERO) Current Patient Data: Vital Signs: Vital Signs Date Time Temp Pulse Resp B/P (MAP) Pulse Ox O2 Delivery O2 Flow Rate FiO2 01/30/21 10:06 98.2 72 16 135/76 (95) 99 (LIDIA RUGGIERO) Heart Score: C/O Chest Pain: No (LIDIA RUGGIERO) Course & Med Decision Making: Course & Med Decision Making Pertinent Labs and Imaging studies reviewed. (See chart for details) Initial work-up will include bladder scan to see if patient is in fact retaining urine and urinalysis. Bladder scan showed greater than 480 cc in the bladder. Catheter will be replaced here in the emergency department. Discussed catheter care maintenance with the patient to avoid issues in the future. Patient advised to use dependent draining bag at night while he sleeps versus keeping the leg bag attached. Additionally, he needs to change the bag frequently and make sure that it stays clean. Patient advised to keep his appointment with his primary care provider this afternoon to discuss catheter care further. Additionally, he has an appointment on 02/10 with his urologist. Patient will be notified if urine culture comes back positive for UTI. Patient understands and is agreeable to discharge plan. (LIDIA RUGGIERO) Course & Med Decision Making Did not see or evaluate patient. Did not discuss patient with PA. Agree with PAs work-up and disposition per note. (ERIC DILLARD MD) Dragon Disclaimer: Dragon Disclaimer: This electronic medical record was generated, in whole or in part, using a voice recognition dictation system. (LIDIA RUGGIERO) Departure Departure: Impression: Primary Impression: Catheter (urine) change required Disposition: HOME / SELF CARE / HOMELESS Condition: STABLE Referrals: ANNITA ZAVALA MD (PCP) Patient Instructions: Gurrola Catheter Care, Adult Additional Instructions: As discussed, you will be notified if you need antibiotics for urinary tract infection. Please keep your appointment today with your primary care physician and your appointment next week with your urologist. Return to the emergency department if you have worse symptoms or new symptoms. LIDIA RUGGIERO Jan 30, 2021 10:27 ERIC DILLARD MD Jan 30, 2021 13:51
[2021-01-30 11:53] LABS: BILIRUBIN,URINE NEG (NEG); CLARITY,URINE HAZY; COLOR,URINE STRAW; GLUCOSE,URINE NEG (NEG); NITRITE,URINE NEG (NEG); UROBILINOGEN,URINE 0.2 mg/dL (0.2 mg/dL)
[2021-01-30 11:54] LABS: BACTERIA,URINE 0 /HPF (0-FEW); WBC,URINE >40 /HPF (0-4)
== END 2021-01-30 11:21 | disposition home or self-care (01) ==
LOC: ER 09:55
DX: N39.0 Urinary tract infection, site not specified (principal); I10 Essential (primary) hypertension; Z46.6 Encounter for fitting and adjustment of urinary device; Z87.891 Personal history of nicotine dependence
CPT/HCPCS: 51702; 81001; 87086; 99283-25; 99284-25

== ENCOUNTER 2021-02-10 22:37 | Emergency (ER) | payer MEDICARE ==
[~2021-02-10] VITALS: Ht 175.3 cm; Wt 105.4 kg
[2021-02-10 23:10] VITALS: BP 139/99
--- NOTE | 2021-02-10 23:38 | PHYS DOC ---
Past History Past Medical History: Hypertension Additional Past Medical Histor: lg abd hernia; BHP (INDRARAGHU STONE CARRIAGE OPERATOR) Past Surgical History: Other Additional Past Surgical Histo: RIGHT ROTATOR CUFF REPAIR (RAGHU BURRELL STONE CARRIAGE OPERATOR) Smoking: Quit Greater Than 1 Year Alcohol Use: None Drug Use: None (RAGHU BURRELL STONE CARRIAGE OPERATOR) Adult General Chief Complaint Chief Complaint: URINE CATHETER PROBLEM HPI HPI Patient is a 70-year-old male patient who presents to the ED today for catheter problem. Patient states he had his Vasquez catheter replaced today at 2 PM at [facility] urology clinic, he states initially they had tried to teach him how to straight cath but he was unable to bleed so they had to replace the catheter. He states the process of replacing it was a very traumatic, he states he noted blood during the replacement. He states since it was replaced he has small amount of blood in the catheter and barely any urine. He states he has suprapubic pressure and feels the catheter is not in the right place. Patient states he has the cather due to BPH. (RAGHU BURRELL STONE CARRIAGE OPERATOR) Review of Systems Review of Systems Constitutional: Denies fever or chills [] GI: Denies abdominal pain, nausea, vomiting, bloody stools or diarrhea [] : Reports catheter problems. Denies dysuria or hematuria [] Musculoskeletal: Denies back pain or joint pain [] Integument: Denies rash or skin lesions [] Neurologic: Denies headache, focal weakness or sensory changes [] All other systems were reviewed and found to be within normal limits, except as documented in this note. (RAGHU BURRELL STONE CARRIAGE OPERATOR) Allergies Allergies Allergies Coded Allergies Type Severity Reaction Last Updated Verified No Known Drug Allergies 01/12/21 No (RAGHU BURRELL STONE CARRIAGE OPERATOR) Physical Exam Physical Exam Constitutional: Well developed, well nourished, no acute distress, non-toxic appearance. [] Abdomen: Obese abdomen, coud Vasquez catheter noted with small amount of blood- tinged urine, bowel sounds normal, soft, no tenderness, no masses, no pulsatile masses. [] Skin: Warm, dry, no erythema, no rash. [] Back: No tenderness, no CVA tenderness. [] Extremities: No tenderness, no cyanosis, no clubbing, ROM intact, no edema. [] Neurologic: Alert and oriented X 3, normal motor function, normal sensory function, no focal deficits noted. [] Psychologic: Affect normal, judgement normal, mood normal. [] (RAGHU BURRELL STONE CARRIAGE OPERATOR) Current Patient Data Vital Signs Vital Signs Date Time Temp Pulse Resp B/P (MAP) Pulse Ox O2 Delivery O2 Flow Rate FiO2 02/10/21 23:10 98.0 70 18 139/99 (112) 100 Room Air (RAGHU BURRELL STONE CARRIAGE OPERATOR) EKG EKG [] (RAGHU BURRELL APRN) Radiology/Procedures Radiology/Procedures [] (RAGHU BURRELL STONE CARRIAGE OPERATOR) Heart Score C/O Chest Pain: N/A Risk Factors: Risk Factors: DM, Current or recent (<one month) smoker, HTN, HLP, family history of CAD, obesity. Risk Scores: Risk Factors: DM, Current or recent (<one month) smoker, HTN, HLP, family history of CAD, obesity. (ARGHU BURRELL STONE CARRIAGE OPERATOR) Course & Med Decision Making Course & Med Decision Making Pertinent Labs and Imaging studies reviewed. (See chart for details) This is a 70-year-old male patient presenting to the ED today complaining of Vasquez catheter being bloody and barely draining any urine. Catheter was changed today at 2 PM at urology clinic BVI noted around 350 cc. RN was able to changed the vasquez catheter and irrigated the bladder. Urine draining adequately >250cc bloody urine noted. D/c to home. Has f/u with Urologist (RAGHU BURRELL APRN) Dragon Disclaimer Dragon Disclaimer This electronic medical record was generated, in whole or in part, using a voice recognition dictation system. (RAGHU BURRELL STONE CARRIAGE OPERATOR) Departure Departure: Impression: Primary Impression: Vasquez catheter problem Disposition: HOME / SELF CARE / HOMELESS Condition: STABLE Referrals: ANNITA ZAVALA MD (PCP) follow up with your urologist as son as you can Patient Instructions: Vasquez Catheter Care, Adult Additional Instructions: Your catheter was changed in the emergency room and is currently draining adequately. Please follow-up with your urologist as soon as possible Attending Signature Attending Signature I have participated in the care of this patient and I have reviewed and agree with all pertinent clinical information above including history, exam, and recommendations. (SHYAM PARSON MD) Problem Qualifiers Primary Impression: Vasquez catheter problem Encounter type: initial encounter Qualified Codes: T83.9XXA - Unspecified complication of genitourinary prosthetic device, implant and graft, initial encounter RAGHU BURRELL APRN Feb 10, 2021 23:38 SHYAM PARSON MD Feb 16, 2021 03:34
== END 2021-02-11 00:10 | disposition home or self-care (01) ==
LOC: ER 22:37
DX: T83.098A Other mechanical complication of other urinary catheter, initial encounter (principal); I10 Essential (primary) hypertension; Z87.891 Personal history of nicotine dependence
CPT/HCPCS: 51702; 99284

== ENCOUNTER 2021-02-17 19:34 | Emergency (ER) | payer MEDICARE ==
[~2021-02-17] VITALS: Ht 175.3 cm; Wt 108.0 kg
--- NOTE | 2021-02-17 19:59 | PHYS DOC ---
Past History Past Medical History: Hypertension Additional Past Medical Histor: lg abd hernia; BHP Past Surgical History: Other Additional Past Surgical Histo: RIGHT ROTATOR CUFF REPAIR Smoking: Quit Greater Than 1 Year Alcohol Use: None Drug Use: None General Adult EDM: Chief Complaint: URINARY RETENTION HPI: HPI: 70-year-old male presents with urinary retention. The patient has a Gurrola cath eter but he is concerned it might be blocked. He is feeling like he has extra pressure down his pelvic area. Last time he had this about a week ago his Gurrola catheter was obstructed and had to be replaced. Currently it is about a week old. He usually has it changed once a month. The patient has a Gurrola catheter due to enlarged prostate issues. He is hoping for a surgical procedure in the future. He denies fever or chills. He has no other specific complaints at this time. Review of Systems: Review of Systems: Constitutional: Denies fever or chills Eyes: Denies change in visual acuity HENT: Denies nasal congestion or sore throat Respiratory: Denies cough or shortness of breath Cardiovascular: Denies chest pain or edema GI: Suprapubic abdominal pain. Denies nausea, vomiting, bloody stools or diarrhea : Gurrola catheter, urinary retention. Musculoskeletal: Denies back pain or joint pain Integument: Denies rash Neurologic: Denies headache, focal weakness or sensory changes Endocrine: Denies polyuria or polydipsia Lymphatic: Denies swollen glands Psychiatric: Denies depression or anxiety Allergies: Allergies: Allergies Coded Allergies Type Severity Reaction Last Updated Verified No Known Drug Allergies 01/12/21 No Physical Exam: PE: Constitutional: Well developed, well nourished, no acute distress, non-toxic jeffry earance. [] HENT: Normocephalic, atraumatic, bilateral external ears normal, oropharynx moist, no oral exudates, nose normal. [] Eyes: PERRLA, EOMI, conjunctiva normal, no discharge. [] Neck: Normal range of motion, no tenderness, supple, no stridor. [] Cardiovascular: Heart rate regular rhythm, no murmur [] Lungs & Thorax: Bilateral breath sounds clear to auscultation [] Abdomen: Bowel sounds normal, rotund, firm, lower abdominal tenderness, no masses, no pulsatile masses. [] Skin: Warm, dry, no erythema, no rash. [] Back: No tenderness, no CVA tenderness. [] Extremities: No tenderness, no cyanosis, no clubbing, ROM intact, no edema. [] Neurologic: Alert and oriented X 3, normal motor function, normal sensory function, no focal deficits noted. [] Psychologic: Affect normal, judgement normal, mood normal. [] EKG: EKG: [] Radiology/Procedures: Radiology/Procedures: [] Heart Score: C/O Chest Pain: N/A Risk Factors: Risk Factors: DM, Current or recent (<one month) smoker, HTN, HLP, family history of CAD, obesity. Risk Scores: Score 0 - 3: 2.5% MACE over next 6 weeks - Discharge Home Score 4 - 6: 20.3% MACE over next 6 weeks - Admit for Clinical Observation Score 7 - 10: 72.7% MACE over next 6 weeks - Early Invasive Strategies Course & Med Decision Making: Course & Med Decision Making Pertinent Labs and Imaging studies reviewed. (See chart for details) We will attempt to flush the catheter. If this does not work we will replace it. We did replace the patient's Gurrola catheter. His urinalysis was significant for urinary tract infection as well as yeast. I will treat patient with levofloxacin in the ER and for 7 days at home. I have also advised that he follow-up with his doctor tomorrow to discuss the appropriateness of treatment for the yeast in the urine. [] Dragon Disclaimer: Draglouis Disclaimer: This electronic medical record was generated, in whole or in part, using a voice recognition dictation system. Departure Departure: Impression: Primary Impression: Gurrola catheter problem Qualified Codes: T83.9XXA - Unspecified complication of genitourinary prosthetic device, implant and graft, initial encounter Additional Impression: UTI (urinary tract infection) Qualified Codes: T83.511A - Infection and inflammatory reaction due to indwelling urethral catheter, initial encounter; N39.0 - Urinary tract infection, site not specified Disposition: HOME / SELF CARE / HOMELESS Condition: IMPROVED Referrals: ANNITA ZAVALA MD (PCP) Patient Instructions: Catheter-Associated Urinary Tract Infection FAQs - S[facility]OVAL Scripts Levofloxacin (LEVOFLOXACIN) 750 Mg Tablet 1 TAB PO DAILY for UTI, #7 TAB Prov: VIANNEY STORM DO 02/17/21 VIANNEY STORM DO Feb 17, 2021:59
[2021-02-17 21:14] LABS: BACTERIA,URINE MOD /HPF (0-FEW); BILIRUBIN,URINE NEG (NEG); CLARITY,URINE CLOUDY; COLOR,URINE YELLOW; GLUCOSE,URINE NEG (NEG); NITRITE,URINE POS (NEG); SQUAMOUS EPITHELIAL CELL,UR FEW /LPF; UROBILINOGEN,URINE 0.2 mg/dL (0.2 mg/dL); WBC,URINE 20-40 /HPF (0-4)
[2021-02-17 21:15] LABS: YEAST,URINE PRESENT /HPF
[2021-02-17 21:19] VITALS: BP 150/83
[2021-02-17] MEDS ORDERED: LEVO750T5 PO (21:28)
[2021-02-17] MEDS ORDERED: CEPHALEXIN 250 MG CAPSULE PO ONE (21:30)
[2021-02-17] MEDS ORDERED: levoFLOXacin 500 MG TABLET ONE (21:39)
[2021-02-17] MEDS ORDERED: levoFLOXacin 250 MG TABLET ONE (21:39)
[2021-02-17] MEDS: levoFLOXacin 500 MG TABLET PO ONE (21:41)
[2021-02-17] MEDS: levoFLOXacin 250 MG TABLET PO ONE (21:41)
== END 2021-02-17 21:43 | disposition home or self-care (01) ==
LOC: ER 19:34
DX: T83.098A Other mechanical complication of other urinary catheter, initial encounter (principal); T83.511A Infection and inflammatory reaction due to indwelling urethral catheter, initial encounter; N39.0 Urinary tract infection, site not specified; I10 Essential (primary) hypertension; Z87.891 Personal history of nicotine dependence
CPT/HCPCS: 51702; 81001; 87086; 99284

== ENCOUNTER 2021-02-27 19:39 | Emergency (ER) | payer MEDICARE ==
[~2021-02-27] VITALS: Ht 175.3 cm; Wt 108.0 kg
[~2021-02-27 19:39] MED LIST changes: +LEVO750T5 PO
--- NOTE | 2021-02-27 21:07 | PHYS DOC ---
Past History Past Medical History: Hypertension Additional Past Medical Histor: lg abd hernia; BHP (ISABELLE COOK APRN) Past Surgical History: Other Additional Past Surgical Histo: RIGHT ROTATOR CUFF REPAIR (ISABELLE COOK APRN) Smoking: Quit Greater Than 1 Year Alcohol Use: None Drug Use: None (ISABELLE COOK APRN) Adult General Chief Complaint Chief Complaint: URINE CATHETER PROBLEM HPI HPI Patient is a 70-year-old male presents to the emergency department concerning blood in his Gurrola leg bag. Patient reports he wears a indwelling Gurrola at all times related to "bladder problems". Patient states he is not sure if he pulled on the Gurrola while he was asleep or if he has another urinary tract infection as he has contracted urinary tract infections without pain or bladder pressure or fever or chills. Patient reports he does have an appointment to see his primary care physician Dr. Zavala in the morning. Patient is concerned he may have blood clots in his Gurrola and it may back him up with urinary retention. Patient denies other physical complaints or physical concerns. (ISABELLE COOK APRN) Review of Systems Review of Systems 14 body systems of review of systems have been reviewed. See HPI for pertinent positives and negative responses, otherwise all other systems are negative, nonpertinent or noncontributory. Constitutional: Negative except as outlined in HPI above. Skin: Negative except as outlined in HPI above. Eyes: Negative except as outlined in HPI above. HENT: Negative except as outlined in HPI above. Respiratory: Negative except as outlined in HPI above. Cardiovascular: Negative except as outlined in HPI above. GI: Negative except as outlined in HPI above. : Negative except as outlined in HPI above. Musculoskeletal: Negative except as outlined in HPI above. Integument: Negative except as outlined in HPI above. Neurologic: Negative except as outlined in HPI above. Endocrine: Negative except as outlined in HPI above. Lymphatic: Negative except as outlined in HPI above. Psychiatric: Negative except as outlined in HPI above. (ISABELLE COOK APRN) Allergies Allergies Allergies Coded Allergies Type Severity Reaction Last Updated Verified No Known Drug Allergies 01/12/21 No (ISABELLE COOK APRN) Physical Exam Physical Exam Constitutional: Well developed, well nourished, no acute distress, non-toxic appearance. 70-year-old male in no apparent distress. HENT: Normocephalic, atraumatic. Eyes: Conjunctiva normal, no discharge. Neck: Normal range of motion. Cardiovascular: Distal cap refill less than 2 seconds, no cyanosis appreciated. Lungs & Thorax: Patient is in no respiratory distress, no adventitious lung sounds appreciated. Abdomen: Bowel sounds normal, soft, no tenderness, no masses, no pulsatile masses. No bruising or skin discoloration of the abdomen. Skin: Warm, dry, no erythema, no rash. Back: No tenderness, no CVA tenderness. Extremities: No tenderness, no cyanosis, no clubbing, ROM intact, no edema. Neurologic: Alert and oriented X 3, normal motor function, normal sensory function, no focal deficits noted. Psychologic: Affect normal, judgement normal, mood normal. : Genital exam with ED nurse at bedside for rubber mixer reveals a indwelling Gurrola catheter in place with dark red-colored urine flowing into urine bag, scant amount of blood clots in leg bag. No erythema or swelling around urinary meatus, patient is circumcised, no rashes or lesions of the genitals appre ciated. (ISABELLE COOK APRN) Current Patient Data Vital Signs Vital Signs Date Time Temp Pulse Resp B/P (MAP) Pulse Ox O2 Delivery O2 Flow Rate FiO2 02/27/21 20:12 98.6 80 18 149/97 (114) 97 BiPAP/CPAP (ISABELLE COOK APRN) EKG EKG [] (ISABELLE COOK APRN) Radiology/Procedures Radiology/Procedures [] (ISABELLE COOK APRN) Heart Score C/O Chest Pain: No Risk Factors: Risk Factors: DM, Current or recent (<one month) smoker, HTN, HLP, family history of CAD, obesity. Risk Scores: Risk Factors: DM, Current or recent (<one month) smoker, HTN, HLP, family history of CAD, obesity. (ISABELLE COOK APRN) Course & Med Decision Making Course & Med Decision Making Pertinent Labs and Imaging studies reviewed. (See chart for details) 70-year-old male, vital signs reviewed, resents emergency department concerning bloody urine in Gurrola leg bag. Physical examination concerning for possible trauma from pulling on indwelling Gurrola versus urinary tract infection. Will change Gurrola and send urine to lab for urinalysis assay. Patient is amenable to this planning. Urinalysis assay equivocal, unable to complete related to amount of hematuria. Discussed patient case with ED attending physician Dr. Storm who agrees patient can be started on Bactrim DS twice daily for 7 days with strict follow-up with Dr. Zavala tomorrow. Patient given first dose p.o. today, prescription sent to patient's pharmacy of choice, patient does have appointment to see Dr. Zavala tomorrow. Discussed medication regimen and side effects, return to ER precautions or concerns, patient is amenable to and gave verbal understanding of ED discharge planning. Discussed with the patient all findings and diagnostic testing as well as the need to follow-up with their primary care provider for further evaluation and treatment or return to the ED if any new or worsening symptoms. Strict return precautions were also discussed at length, the patient voiced understanding and agreement with the discharge planning. The patient was nontoxic in appearance, in no apparent distress, and hemodynamically stable at the time of disposition. (ISABELLE COOK APRN) Dragon Disclaimer Dragon Disclaimer This electronic medical record was generated, in whole or in part, using a voice recognition dictation system. (ISABELLE COOK APRN) Attending Co-Sign The patient was seen and interviewed as well as examined at the bedside. The chart was reviewed. The case was discussed. Agree with the plan of care. (VIANNEY STORM DO) Departure Departure: Impression: Primary Impression: Gurrola catheter problem Additional Impressions: Hematuria Abnormal urinalysis Disposition: 01 HOME / SELF CARE / HOMELESS Condition: GOOD Referrals: ANNITA ZAVALA MD (PCP) Patient Instructions: Hematuria, Adult Additional Instructions: You are seen in the emergency department today for blood in your urine Gurrola bag. Your Gurrola bag was replaced, and a urine sample was sent to the lab, there was some noted bacteria in your urine, therefore I am starting you on a antibiotic that you will take twice a day for the next 7 days. Please follow-up with Dr. Zavala tomorrow and let him know of your emergency room visit today in the ER on the antibiotic, please take with you to appointment so he knows which antibiotic you have been started on. Return to the emergency department for worsening symptoms or other concerns. Thank you for visiting our Emergency Department. It was a pleasure taking care of you today in the emergency department and we appreciate you trusting us with your care. If any additional problems come up don't hesitate to return to visit us. Please follow up with your primary care provider so they can plan additional care if needed and know about the problem that you had. If symptoms worsen come back to the Emergency Department. Any concerning symptoms that start such as chest pain, shortness of air, weakness or numbness on one side of the body, running high fevers or any other concerning symptoms return to the ER. EMERGENCY DEPARTMENT GENERAL DISCHARGE INSTRUCTIONS Thank you for coming to [facility] (ED) today and trusting us with you care. We trust that you had a positivie experience in our Emergency Department. If you wish to speak to the department management, you may call the director at [phone]. YOUR FOLLOW UP INSTRUCTIONS ARE FOLLOWS: 1. Do you have a private Doctor? If you do not have a private doctor, please ask for a resource list of physicians or clinics that may be able to assist you with follow up care. 2. The Emergency Physician has interpreted your x-rays. The X-Ray specialist will also review them. If there is a change in the findings, you will be notified in 48 hours when at all possible. 3. A lab test or culture has been done, your results will be reviewed and you will be notified if you need a change in treatment. ADDITIONAL INSTRUCTIONS AND INFORMATION: 1. Your care today has been supervised by a physician who is specially trained in emergency care. Many problems require more than one evaluation for a complete diagnosis and treatment. We recommend that you schedule your follow up appointment as recommended to ensure complete treatment of you illness or injury. If you are unable to obtain follow up care and continue to have a problem, or if your condition worsens, we recommend that you return to the ED. 2. We are not able to safely determine your condition over the phone nor are we able to give sound medical advice over the phone. For these safety reasons, if you call for medical advice we will ask you to come to the ED for further evaluation. 3. If you have any questions regarding these discharge instructions please call the ED at [phone]. SAFETY INFORMATION: In the interest of safety, wellness, and injury prevention; we encourage you to wear your sealbelt, if you smoke; quite smoking, and we encourage family to use a protective helmet for bicycling and other sporting events that present an increased risk for head injury. IF YOUR SYMPTOMS WORSEN OR NEW SYMPTOMS DEVELOP, OR YOU HAVE CONCERNS ABOUT YOUR CONDITION; OR IF YOUR CONDITION WORSENS WHILE YOU ARE WAITING FOR YOUR FOLLOW UP APPOINTMENT; EITHER CONTACT YOUR PRIMARY CARE DOCTOR, THE PHYSICIAN WHOSE NAME AND NUMBER YOU WERE GIVEN, OR RETURN TO THE ED IMMEDIATELY. Scripts Sulfamethoxazole/Trimethoprim (BACTRIM DS TABLET) 1 Each Tablet 1 TAB PO BID for hematuria for 7 Days, #14 TAB 0 Refills Prov: ISABELLE COOK APRN 02/27/21 Problem Qualifiers Primary Impression: Gurrola catheter problem Encounter type: initial encounter Qualified Codes: T83.9XXA - Unspecified complication of genitourinary prosthetic device, implant and graft, initial encounter Additional Impressions: Hematuria Hematuria type: unspecified type Qualified Codes: R31.9 - Hematuria, unspecified ISABELLE COOK APRN Feb 27, 2021 21:07 VIANNEY STORM DO Feb 28, 2021 06:02
[2021-02-27 21:35] LABS: BACTERIA,URINE FEW /HPF (0-FEW); CLARITY,URINE CLOUDY; COLOR,URINE RED; RBC,URINE >40 /HPF (0-2); SQUAMOUS EPITHELIAL CELL,UR FEW /LPF; WBC,URINE 0 /HPF (0-4)
[2021-02-27] MEDS ORDERED: SULF1TAB24 PO (21:55)
[2021-02-27] MEDS ORDERED: SMZ/TMP 800/160MG TABLET. PO ONE (22:00)
[2021-02-27 22:02] VITALS: BP 132/70
== END 2021-02-27 22:03 | disposition home or self-care (01) ==
LOC: ER 19:39
DX: T83.091A Other mechanical complication of indwelling urethral catheter, initial encounter (principal); R31.9 Hematuria, unspecified; R82.90 Unspecified abnormal findings in urine; I10 Essential (primary) hypertension; Z87.891 Personal history of nicotine dependence
CPT/HCPCS: 51702; 81001; 99284-25